=== PATIENT | female | born 1990 | race Caucasian/White ===

== ENCOUNTER 2017-02-22 20:46 | Emergency (ER) | payer OTHER ==
[2017-02-22 20:57] VITALS: TEMP 98.6; BMI 25.7
[2017-02-22 21:44] LABS: BASOPHIL 0.2 % (0-2.0); EOSINOPHIL 0.3 % (0-4.5); MCH 30.9 pg (25.7-33.7); MCHC 34.4 g/dl (32.0-36.0); MEAN CELL VOLUME 89.9 fl (80-96); MEAN PLT VOLUME 8.3 fl (7.5-11.1); NEUTROPHILS 71.7 % (42.8-82.8); PLATELET COUNT 285 K/MM3 (134-434); RDW 13.7 % (11.6-15.6); URINE APPEARANCE SLCLOUDY; URINE BILIRUBIN NEGATIVE (NEGATIVE); URINE BLOOD NEGATIVE (NEGATIVE); URINE COLOR DKYELLOW; URINE GLUCOSE (UA) NEGATIVE (NEGATIVE); URINE KETONE TRACE (NEGATIVE); URINE LEUK ESTERASE NEGATIVE (NEGATIVE); URINE NITRITE NEGATIVE (NEGATIVE); URINE PROTEIN NEGATIVE (NEGATIVE); URINE UROBILINOGEN NEGATIVE mg/dL (0.2-1.0)
[2017-02-22 22:17] LABS: ALBUMIN 3.6 g/dl (3.4-5.0); ANION GAP 9 (8-16); BILIRUBIN,TOTAL 0.2 mg/dL (0.2-1.0); CALCIUM 8.7 mg/dL (8.5-10.1); CO2 26 mmol/L (21-32); CREATININE 0.6 mg/dL (0.55-1.02); SGOT/AST 14 U/L (15-37); SGPT/ALT 22 U/L (12-78); TOT PROT 6.9 g/dl (6.4-8.2)
[2017-02-22 22:18] LABS: ALK PHOS 68 U/L (45-117)
[2017-02-22 22:24] LABS: GLUCOSE,RANDOM 48 mg/dL (74-106)
--- NOTE | 2017-02-22 22:36 | PDOC ---
History of Present Illness - General History Source: Patient Exam Limitations: No Limitations - History of Present Illness Initial Comments: 02/22/17 22:40 The patient is a 27-year-old female who is 10 weeks , , with no significant past medical history, who presents to the ED with vaginal spotting that began yesterday. The patient states that the blood appeared to be red/ brown in color. She also reports experiencing abdominal cramping. She has no history of ectopic pregnancies or miscarriages. Pt had a confirmed IUP on first visit. The patient denies any fever, chills, nausea, vomiting, or diarrhea. She denies any urinary symptoms. PCP: Dr. Brooke Costa Surgical Hx: Gastric Bypass Surgery, . <Farideh Carroll - Last Filed: 02/22/17 22:40> - General History Source: Patient Exam Limitations: No Limitations <Maryuri Olsen - Last Filed: 02/22/17 23:54> - General Chief Complaint: Vaginal Bleeding Stated Complaint: VAGINAL BLEEDING/10 WKS Time Seen by Provider: 02/22/17 21:14 Past History <Farideh Carroll - Last Filed: 02/22/17 22:40> - Reproductive History Is Patient Now?: Yes Therapeutic (s) & number: No - Psycho/Social/Smoking Cessation Hx Anxiety: No Suicidal Ideation: No Smoking History: Never smoked Have you smoked in the past 12 months: No Information on smoking cessation initiated: No Hx Alcohol Use: No Drug/Substance Use Hx: No Substance Use Type: None <Maryuri Olsen - Last Filed: 02/22/17 23:54> - Past Medical History Allergies/Adverse Reactions: Allergies Allergy/AdvReac Type Severity Reaction Status Date / Time No Known Allergies Allergy Verified 02/22/17 20:57 Home Medications: Ambulatory Orders NK [No Known Home Medication] 02/22/17 Review of Systems - Review of Systems Able to Perform ROS?: Yes Comments:: 02/22/17 22:41 GENERAL/CONSTITUTIONAL: No fever or chills. No weakness. HEAD, EYES, EARS, NOSE AND THROAT: No change in vision. No ear pain or discharge. No sore throat. CARDIOVASCULAR: No chest pain or shortness of breath. RESPIRATORY: No cough, wheezing, or hemoptysis. GASTROINTESTINAL: (+)Abdominal cramping. No nausea, vomiting, diarrhea or constipation. GENITOURINARY: (+)vaginal spotting. No dysuria, frequency, or change in urination. MUSCULOSKELETAL: No joint swelling or pain. No neck or back pain. SKIN: No rash NEUROLOGIC: No headache, vertigo, loss of consciousness, or change in strength/ sensation. ENDOCRINE: No increased thirst. No abnormal weight change. HEMATOLOGIC/LYMPHATIC: No anemia, easy bleeding, or history of blood clots. ALLERGIC/IMMUNOLOGIC: No hives or skin allergy. <Farideh Carroll - Last Filed: 02/22/17 22:40> *Physical Exam - Vital Signs Last Vital Signs Temp Pulse Resp BP Pulse Ox 98.6 F 102 H 18 119/68 99 02/22/17 20:54 02/22/17 20:54 02/22/17 20:54 02/22/17 20:54 02/22/17 20:54 - Physical Exam Comments: 02/22/17 22:42 GENERAL: Awake, alert, and fully oriented, in no acute distress HEAD: No signs of trauma EYES: PERRLA, EOMI, sclera anicteric, conjunctiva clear ENT: Auricles normal inspection, hearing grossly normal, nares patent, oropharynx clear without exudates. Moist mucosa NECK: Normal ROM, supple, no lymphadenopathy, JVD, or masses LUNGS: Breath sounds equal, clear to auscultation bilaterally. No wheezes, and no crackles HEART: Regular rate and rhythm, normal S1 and S2, no murmurs, rubs or gallops ABDOMEN: Soft, nontender, normoactive bowel sounds. No guarding, no rebound. No masses EXTREMITIES: Normal range of motion, no edema. No clubbing or cyanosis. No cords, erythema, or tenderness NEUROLOGICAL: Cranial nerves II through XII intact. SKIN: Warm, Dry, normal turgor, no rashes or lesions noted <Farideh Carroll - Last Filed: 02/22/17 22:40> - Vital Signs Last Vital Signs Temp Pulse Resp BP Pulse Ox 98.6 F 102 H 18 119/68 99 02/22/17 20:54 02/22/17 20:54 02/22/17 20:54 02/22/17 20:54 02/22/17 20:54 <Maryuri Olsen - Last Filed: 02/22/17 23:54> Procedures - Bedside Ultrasound Bedside Ultrasound: telegrapher agent Other: see [facility] for report <RaúlMaryuri - Last Filed: 02/22/17 23:54> ED Treatment Course - LABORATORY CBC & Chemistry Diagram: 02/22/17 21:30 02/22/17 21:30 - ADDITIONAL ORDERS Additional order review: Laboratory Results 02/22/17 02/22/17 02/22/17 21:30 21:30 21:30 Sodium 141 Potassium 4.3 Chloride 106 Carbon Dioxide 26 Anion Gap 9 BUN 6 L Creatinine 0.6 Creat Clearance w eGFR > 60 Random Glucose 48 L* Calcium 8.7 Total Bilirubin 0.2 AST 14 L ALT 22 Alkaline Phosphatase 68 Total Protein 6.9 Albumin 3.6 Urine Color Dkyellow Urine Appearance Slcloudy Urine pH 5.0 Urine Protein Negative Urine Glucose (UA) Negative Urine Ketones Trace H Urine Blood Negative Urine Nitrite Negative Urine Bilirubin Negative Urine Urobilinogen Negative Ur Leukocyte Esterase Negative Blood Type B POSITIVE Antibody Screen Negative 02/22/17 21:30 RBC 4.13 MCV 89.9 MCHC 34.4 RDW 13.7 MPV 8.3 Neutrophils % 71.7 Lymphocytes % 21.8 Monocytes % 6.0 Eosinophils % 0.3 Basophils % 0.2 <Farideh Carroll - Last Filed: 02/22/17 22:40> - LABORATORY CBC & Chemistry Diagram: 02/22/17 21:30 02/22/17 21:30 - ADDITIONAL ORDERS Additional order review: Laboratory Results 02/22/17 02/22/17 21:30 21:30 Sodium 141 Potassium 4.3 Chloride 106 Carbon Dioxide 26 Anion Gap 9 BUN 6 L Creatinine 0.6 Creat Clearance w eGFR > 60 Random Glucose 48 L* Calcium 8.7 Total Bilirubin 0.2 AST 14 L ALT 22 Alkaline Phosphatase 68 Total Protein 6.9 Albumin 3.6 Urine Color Dkyellow Urine Appearance Slcloudy Urine pH 5.0 Urine Protein Negative Urine Glucose (UA) Negative Urine Ketones Trace H Urine Blood Negative Urine Nitrite Negative Urine Bilirubin Negative Urine Urobilinogen Negative Ur Leukocyte Esterase Negative 02/22/17 21:30 RBC 4.13 MCV 89.9 MCHC 34.4 RDW 13.7 MPV 8.3 Neutrophils % 71.7 Lymphocytes % 21.8 Monocytes % 6.0 Eosinophils % 0.3 Basophils % 0.2 <Maryuri Olsen - Last Filed: 02/22/17 23:54> Medical Decision Making - Medical Decision Making 02/22/17 22:34 27 yo at 10 weeks with vaginal spotting. started yesterday. describes as red with brown. mild abd cramping. no h/o ectopic or miscarriage. had confirmed IUP on her first visit. no other complaints. no urinary sxs. PE awake alert lungs clear heart rrr no mrg. abd soft nt nd. ext wwp no edema. plan: differential threatened vs. missed or incomlete ab. plan labs bedside us, reassess. 02/22/17 22:36 focused ED ultrasound transabdominal OB, indication bleeding evaluate well being. finding: uterus scanned in two planes. gestational sac with pole and yolk sac visualized. movement noted. crown rump length 10 wks. heart rate measured 171 bpm impression: live IUP 10 wks, 02/22/17 23:53 labs unremarkalbe. blood type Bpositive. dc home. <Maryuri Olsen - Last Filed: 02/22/17 23:54> *DC/Admit/Observation/Transfer - Attestations Scribe Attestion: 02/22/17 22:42 Documentation prepared by Farideh Carroll, acting as medical sales for Maryuri Olsen MD. <Farideh Carroll - Last Filed: 02/22/17 22:40> - Discharge Dispostion Admit: No <Maryuri Olsen - Last Filed: 02/22/17 23:54> Diagnosis at time of Disposition: Threatened - Discharge Dispostion Disposition: HOME Condition at time of disposition: Stable - Referrals Referrals: Brooke Costa MD [Primary Care Provider] - - Patient Instructions Printed Discharge Instructions: DI for Vaginal Bleeding During Additional Instructions: you should drink plenty of fluids. follow up with your mass spectroscopist next week call to schedule. nothing per vagina while bleeding. return for any concerns or problems.
--- NOTE | 2017-02-22 23:25 | PDOC ---
History of Present Illness - General Chief Complaint: Vaginal Bleeding Stated Complaint: VAGINAL BLEEDING/10 WKS Time Seen by Provider: 02/22/17 21:14 History Source: Patient Exam Limitations: No Limitations - History of Present Illness Initial Comments: 02/22/17 23:50 LMP 12/06/2016 27-year-old female with no past medical history presents to the emergency department complaining of scant vaginal "blood" discharge without nausea/ vomiting, fever/chills, chest pain, shortness of breath, abdominal pains, flank pains, urinary symptoms: Frequency/urgency/hesitancy, hematuria. Patient denies any pain is discomfort. Past History - Past Medical History Allergies/Adverse Reactions: Allergies Allergy/AdvReac Type Severity Reaction Status Date / Time No Known Allergies Allergy Verified 02/22/17 20:57 Home Medications: Ambulatory Orders NK [No Known Home Medication] 02/22/17 - Reproductive History Is Patient Now?: Yes Therapeutic (s) & number: No - Psycho/Social/Smoking Cessation Hx Anxiety: No Suicidal Ideation: No Smoking History: Never smoked Have you smoked in the past 12 months: No Information on smoking cessation initiated: No Hx Alcohol Use: No Drug/Substance Use Hx: No Substance Use Type: None Review of Systems - Review of Systems Able to Perform ROS?: Yes Comments:: 02/22/17 23:51 CONSTITUTIONAL: Absent: fever, chills, diaphoresis, generalized weakness, malaise, loss of appetite HEENT: Absent: rhinorrhea, nasal congestion, throat pain, throat swelling, difficulty swallowing, mouth swelling, ear pain, eye pain, visual Changes CARDIOVASCULAR: Absent: chest pain, loss of consciousness, palpitations, irregular heart rate, peripheral edema RESPIRATORY: Absent: cough, shortness of breath, dyspnea with exertion, orthopnea, wheezing, stridor, hemoptysis GASTROINTESTINAL: Absent: abdominal pain, abdominal distension, nausea, vomiting, diarrhea, constipation, melena, hematochezia GENITOURINARY: Absent: dysuria, frequency, urgency, hesitancy, hematuria, flank pain, genital pain MUSCULOSKELETAL: Absent: myalgia, arthralgia, joint swelling SKIN: Absent: rash, itching, pallor Is the patient limited Citizen [place] proficient: No *Physical Exam - Vital Signs Last Vital Signs Temp Pulse Resp BP Pulse Ox 98.6 F 102 H 18 119/68 99 02/22/17 20:54 02/22/17 20:54 02/22/17 20:54 02/22/17 20:54 02/22/17 20:54 - Physical Exam Comments: 02/22/17 23:51 GENERAL: Well developed, well nourished. Awake and alert. No acute distress. HEENT: Normocephalic, atraumatic. PERRLA, EOMI. No conjunctival pallor. Sclera are non- icteric. Moist mucous membranes. Oropharynx is clear. NECK: Supple. Full ROM. No JVD. Carotid pulses 2+ and symmetric, without bruits. No thyromegaly. No lymphadenopathy. CARDIOVASCULAR: Regular rate and rhythm. No murmurs, rubs, or gallops. Distal pulses are 2+ and symmetric. PULMONARY: No evidence of respiratory distress. Lungs clear to auscultation bilaterally. No wheezing, rales or rhonchi. ABDOMINAL: Soft. Non-tender. Non-distended. No rebound or guarding. No organomegaly. Normoactive bowel sounds. SKIN: Warm and dry. Normal capillary refill. No rashes. No jaundice. Pelvic: External genitalia normal without lesions. Vaginal vault is clear without blood or discharge. Cervix is long and closed. ED Treatment Course - LABORATORY CBC & Chemistry Diagram: 02/22/17 21:30 02/22/17 21:30 - ADDITIONAL ORDERS Additional order review: Laboratory Results 02/22/17 02/22/17 02/22/17 21:30 21:30 21:30 Sodium 141 Potassium 4.3 Chloride 106 Carbon Dioxide 26 Anion Gap 9 BUN 6 L Creatinine 0.6 Creat Clearance w eGFR > 60 Random Glucose 48 L* Calcium 8.7 Total Bilirubin 0.2 AST 14 L ALT 22 Alkaline Phosphatase 68 Total Protein 6.9 Albumin 3.6 Urine Color Dkyellow Urine Appearance Slcloudy Urine pH 5.0 Ur Specific Raymond >= 1.030 H Urine Protein Negative Urine Glucose (UA) Negative Urine Ketones Trace H Urine Blood Negative Urine Nitrite Negative Urine Bilirubin Negative Urine Urobilinogen Negative Ur Leukocyte Esterase Negative Blood Type B POSITIVE Antibody Screen Negative 02/22/17 21:30 RBC 4.13 MCV 89.9 MCHC 34.4 RDW 13.7 MPV 8.3 Neutrophils % 71.7 Lymphocytes % 21.8 Monocytes % 6.0 Eosinophils % 0.3 Basophils % 0.2 *DC/Admit/Observation/Transfer Diagnosis at time of Disposition: Threatened - Discharge Dispostion Disposition: HOME Condition at time of disposition: Stable - Referrals Referrals: Brooke Costa MD [Primary Care Provider] - - Patient Instructions Printed Discharge Instructions: DI for Vaginal Bleeding During Additional Instructions: you should drink plenty of fluids. follow up with your nursing consultant next week call to schedule. nothing per vagina while bleeding. return for any concerns or problems. - Post Discharge Activity
[2017-02-23 00:07] VITALS: BP 122/64; PULSE 89
== END 2017-02-23 00:06 | disposition home or self-care (01) ==
LOC: SUPCPDRO 20:46 → JER 20:46
DX: Z3A.10 10 weeks gestation of pregnancy (principal)
CPT/HCPCS: 36415; 80053; 81003; 84702; 85025; 86850; 86900; 86901; 99283-25

== ENCOUNTER 2017-09-13 07:30 | Inpatient (IN) | payer OTHER ==
[2017-09-13 13:33] VITALS: BMI 31.3
[2017-09-13] MEDS ORDERED: morphine SULFATE/Preservative Free 0.5 MG/ML (1cc Syringe) EP ONE (14:11)
[2017-09-13] MEDS ORDERED: ONDANSETRON 4 MG/2 ML VIAL IVPUSH PRN (14:11)
[2017-09-13] MEDS ORDERED: IBUPROFEN 800 MG/8 ML IJ IVPB PRN (14:13)
[2017-09-13] MEDS ORDERED: BUPIVACAINE 0.75% IN DEXTROSE/PF 2ML AMPULE NR ONE (14:23)
[2017-09-13] MEDS ORDERED: CITRIC ACID/SODIUM CITRATE 30 ML UNIT-DOSE CUP PO ONE (14:31)
--- NOTE | 2017-09-13 14:31 | HP ---
Past Medical History - Primary Care Physician PCP:: Narciso Murrieta - Admission Chief Complaint: 39 weeks, previous c/s , request of repeat c/s History of Present Illness: 27 yo f 39 weeks with previous c/s , request of repeat c/s, risks discussed , discussed , declined , cx clp. vx -3 mi, fhr cat 1, no contraction History Source: Patient Limitations to Obtaining History: No Limitations - Past Medical History ...: 2 ...Para: 1 ...Term: 1 ...LMP: 12/06/16 ... Weeks Gestation by Dates: 40.1 ...EDC by Dates: 09/12/17 ...EDC by Sono: 09/20/17 - Past Surgical History Past Surgical History: Yes: Hx Myomectomy: No Hx Transabdominal Cerclage: No - Smoking History Smoking history: Never smoked Have you smoked in the past 12 months: No - Alcohol/Substance Use Hx Alcohol Use: No History of Substance Use: reports: None Home Medications - Allergies Allergies/Adverse Reactions: Allergies Allergy/AdvReac Type Severity Reaction Status Date / Time No Known Allergies Allergy Verified 02/22/17 20:57 - Home Medications Home Medications: Ambulatory Orders NK [No Known Home Medication] 02/22/17 Review of Systems - Review of Systems Constitutional: reports: No Symptoms Eyes: reports: No Symptoms HENT: reports: No Symptoms Neck: reports: No Symptoms Cardiovascular: reports: No Symptoms Respiratory: reports: No Symptoms Gastrointestinal: reports: No Symptoms Genitourinary: reports: No Symptoms Breasts: reports: No Symptoms Reported Musculoskeletal: reports: No Symptoms Integumentary: reports: No Symptoms Neurological: reports: No Symptoms Endocrine: reports: No Symptoms Hematology/Lymphatic: reports: No Symptoms Psychiatric: reports: No Symptoms Physical Exam - Maternity Vital Signs: Vital Signs Temperature 97.8 F 09/13/17 12:00 Pulse Rate 79 09/13/17 12:00 Respiratory Rate 20 09/13/17 12:00 Blood Pressure 116/65 09/13/17 12:00 O2 Sat by Pulse Oximetry (%) Constitutional: Yes: Well Nourished, No Distress, Calm Eyes: Yes: WNL, Conjunctiva Clear, EOM Intact HENT: Yes: WNL, Atraumatic, Normocephalic Neck: Yes: WNL, Supple, Trachea Midline Cardiovascular: Yes: WNL, Regular Rate and Rhythm Breast(s): Yes: WNL - Abdominal Exam/OB Fundal Height: 38 Number of Fetuses: Single Presentation: Vertex Contractions: No Intensity: Unaware Monitor Mode: External Heart Rate Location: [facility] Category: I Accelerations: Uniform Decelerations: None - Vaginal Exam/OB Vaginal Bleediing: No Speculum Exam: No Dilatation (cm): 0 Effacement (%): 0 Amniotic Membrane Status: Intact Presentation: Vertex/Position Station: -3 - Physical Exam Edema: Yes Edema: LLE: Trace, RLE: Trace Deep Tendon Reflex Grade: Normal +2 Hemorrhage Risk Assessment - Risk Factors Medium Risk Factors: Yes: Prior , uterine surgery,or multiple laparotomies Risk Score: 1 Risk Level: Medium Risk Problem List - Problems (1) with 39 completed weeks gestation Code(s): Z3A.39 - 39 WEEKS GESTATION OF (2) Previous section complicating Code(s): O34.219 - MATERNAL CARE FOR UNSP TYPE SCAR FROM PREVIOUS DEL Assessment/Plan repeat c/s, rba discussed
[2017-09-13] MEDS ORDERED: ceFAZolin SODIUM 1 GM VIAL ONE (14:32)
[2017-09-13] MEDS ORDERED: ePHEDrine SULFATE 50 MG/1 ML AMPULE ONE (14:34)
[2017-09-13] MEDS ORDERED: ELECTROLYTE-148 SOLN 1,000 ML IV SCH (14:45)
[2017-09-13] MEDS ORDERED: OXYTOCIN 20 UNITS in 0.9% NS 20 UNIT/1,000 ML INFUS.BAG IV ONE ×2 (14:47→16:33)
[2017-09-13] MEDS ORDERED: MIDAZOLAM HCL 2 MG/2 ML SINGLE DOSE VIAL ONE (14:47)
[2017-09-13] MEDS ORDERED: METHYLERGONOVINE MALEATE 0.2 MG/1 ML AMP IM PRN (15:22)
[2017-09-13] MEDS ORDERED: BENZOCAINE 20% 57 GM BOTTLE TP PRN (15:22)
[2017-09-13] MEDS ORDERED: WITCH HAZEL 50% (TUCKS) 40 PAD/JAR PAD TP PRN (15:22)
[2017-09-13] MEDS ORDERED: BENZOCAINE 28 GM HEMORRHOIDAL OINTMENT PR PRN (15:22)
[2017-09-13] MEDS ORDERED: DEXTROSE 5%-LACTATED RINGERS 1,000 ML IV SCH (15:30)
[2017-09-13] MEDS ORDERED: OXYTOCIN 20 UNITS in 0.9% NS 20 UNIT/1,000 ML INFUS.BAG IV SCH (15:30)
[2017-09-13] MEDS: IBUPROFEN 800 MG/8 ML IJ IVPB PRN ×2 (17:40→23:58)
[2017-09-13] MEDS: CEFAZOLIN 1 GM/D5W 1 GM/50 ML BAG IVPB SCH (22:33)
[2017-09-14] MEDS: CEFAZOLIN 1 GM/D5W 1 GM/50 ML BAG IVPB SCH (05:40)
[2017-09-14] MEDS: diphenhydrAMINE HCL 25 MG CAPSULE (FP) PO PRN ×2 (05:55→15:47)
--- NOTE | 2017-09-14 06:56 | PN ---
Post Progress Note - Subjective Subjective: 27 yo Para 2 status post repeat , seen and evaluated. She c/o incision pain. Post Day: 1 Type of Delivery: Repeat C/S Vital Signs: Vital Signs Temperature 98.6 F 09/14/17 06:00 Pulse Rate 70 09/14/17 06:00 Respiratory Rate 20 09/14/17 06:00 Blood Pressure 106/56 09/14/17 06:00 O2 Sat by Pulse Oximetry (%) 100 09/13/17 16:20 Breast Exam: Yes: Soft Uterus: Yes: Fundus Firm Incision: Yes: Dressing dry and intact Abdomen/GI: Yes: Abdomen soft, Tolerating PO Lochia: Yes: Rubra Lochia, amount: Small Extremities: Yes: Calves non-tender Perineum: Yes: Intact Activity: Ambulating Problem List - Problems (1) Status post repeat low transverse section Code(s): Z98.891 - HISTORY OF UTERINE SCAR FROM PREVIOUS SURGERY Assessment/Plan Status post repeat Ambulation Analgesia as needed Continue post op care
[2017-09-14 07:45] LABS: BASO % 0.2 % (0-2.0); EOS % 0.2 % (0-4.5); HEMATOCRIT 30.7 % (32.4-45.2); HEMOGLOBIN 10.3 GM/dL (10.7-15.3); LYMPH % 13.5 % (8-40); MCH 30.3 pg (25.7-33.7); MCHC 33.5 g/dl (32.0-36.0); MEAN CELL VOLUME 90.5 fl (80-96); MEAN PLT VOLUME 8.7 fl (7.5-11.1); MONO % 8.3 % (3.8-10.2); NEUT % 77.8 % (42.8-82.8); PLATELET COUNT 245 K/MM3 (134-434); RBC 3.39 M/mm3 (3.60-5.2); WHITE BLOOD COUNT 11.2 K/mm3 (4.0-10.0)
[2017-09-14] MEDS: oxyCODONE HCL 5 MG TABLET PO PRN ×3 (08:43→21:37)
[2017-09-14] MEDS: IBUPROFEN 600 MG TABLET (FP) PO PRN ×3 (08:43→21:36)
[2017-09-14] MEDS: SIMETHICONE 80 MG TAB.CHEW (FP) PO PRN ×3 (08:44→21:36)
--- NOTE | 2017-09-14 08:46 | PN ---
Progress Note (short form) - Note Progress Note: Post op day#1.S/p C Section under spinal anesthesia with duramorph uneventful.Patient stable and has some pain for which she is on medication.No any anesthesia related problem.Patient DC from the anesthesia care.
[2017-09-14] MEDS: FERROUS SO4 325 MG TABLET (FP) PO SCH (10:19)
[2017-09-14] MEDS: ASCORBIC ACID 250 MG TABLET (FP) PO SCH (10:19)
[2017-09-14] MEDS: CALCIUM 500MG/VIT-D 200 UNITS COMBO TABLET (FP) PO SCH (10:19)
[2017-09-14] MEDS: CYANOCOBALAMIN 1,000 MCG TABLET (FP) PO SCH (10:19)
[2017-09-14] MEDS: ENOXAPARIN NA (PORCINE) 40 MG/0.4 ML DISP.SYRIN SQ SCH (10:19)
[2017-09-14] MEDS: PRENATAL VITAMINS W/ FOLIC ACID TABLET (FP) PO SCH (10:19)
[2017-09-14] MEDS ORDERED: BISACODYL 10 MG SUPP.RECT PR PRN (15:23)
[2017-09-14] MEDS ORDERED: METHYL SALICYLATE/MENTHOL OINT 30 GM TUBE TP PRN (18:32)
[2017-09-14] MEDS ORDERED: ACETAMINOPHEN 325 MG TABLET (FP) PO PRN (18:39)
[2017-09-14] MEDS: ACETAMINOPHEN 325 MG TABLET (FP) PO PRN (19:52)
[2017-09-15] MEDS: oxyCODONE HCL 5 MG TABLET PO PRN ×5 (01:34→21:27)
[2017-09-15] MEDS: IBUPROFEN 600 MG TABLET (FP) PO PRN ×5 (01:35→21:28)
[2017-09-15] MEDS: SIMETHICONE 80 MG TAB.CHEW (FP) PO PRN ×4 (01:35→17:28)
[2017-09-15] MEDS: PRENATAL VITAMINS W/ FOLIC ACID TABLET (FP) PO SCH (10:00)
[2017-09-15] MEDS: ENOXAPARIN NA (PORCINE) 40 MG/0.4 ML DISP.SYRIN SQ SCH (10:01)
[2017-09-15] MEDS: FERROUS SO4 325 MG TABLET (FP) PO SCH (10:01)
[2017-09-15] MEDS: CYANOCOBALAMIN 1,000 MCG TABLET (FP) PO SCH (10:01)
[2017-09-15] MEDS: CALCIUM 500MG/VIT-D 200 UNITS COMBO TABLET (FP) PO SCH (10:01)
[2017-09-15] MEDS: ASCORBIC ACID 250 MG TABLET (FP) PO SCH (10:01)
--- NOTE | 2017-09-15 10:06 | PN ---
Post Progress Note - Subjective Subjective: 27 yo Para 2 status post seen and evaluated. Doing well. Post Day: 2 Type of Delivery: Repeat C/S Vital Signs: Vital Signs Temperature 98.2 F 09/14/17 20:37 Pulse Rate 73 09/14/17 20:37 Respiratory Rate 18 09/14/17 20:37 Blood Pressure 95/50 09/14/17 20:37 O2 Sat by Pulse Oximetry (%) 100 09/13/17 16:20 Breast Exam: Yes: Soft Uterus: Yes: Fundus Firm Incision: Yes: Dressing dry and intact Abdomen/GI: Yes: Abdomen soft, Tolerating PO Lochia: Yes: Rubra Lochia, amount: Small Extremities: Yes: Calves non-tender Perineum: Yes: Intact Activity: Ambulating - Labs Labs: CBC WBC 11.2 K/mm3 (4.0-10.0) H 09/14/17 07:20 RBC 3.39 M/mm3 (3.60-5.2) L 09/14/17 07:20 Hgb 10.3 GM/dL (10.7-15.3) L D 09/14/17 07:20 Hct 30.7 % (32.4-45.2) L 09/14/17 07:20 MCV 90.5 fl (80-96) 09/14/17 07:20 MCH 30.3 pg (25.7-33.7) 09/14/17 07:20 MCHC 33.5 g/dl (32.0-36.0) 09/14/17 07:20 RDW 14.0 % (11.6-15.6) 09/14/17 07:20 Plt Count 245 K/MM3 (134-434) 09/14/17 07:20 MPV 8.7 fl (7.5-11.1) 09/14/17 07:20 Neutrophils % 77.8 % (42.8-82.8) 09/14/17 07:20 Lymphocytes % 13.5 % (8-40) D 09/14/17 07:20 Monocytes % 8.3 % (3.8-10.2) 09/14/17 07:20 Eosinophils % 0.2 % (0-4.5) 09/14/17 07:20 Basophils % 0.2 % (0-2.0) 09/14/17 07:20 Problem List - Problems (1) Status post repeat low transverse section Code(s): Z98.891 - HISTORY OF UTERINE SCAR FROM PREVIOUS SURGERY Assessment/Plan Status post repeat Ambulation Analgesia as needed Continue post op care
[2017-09-15] MEDS ORDERED: SENNOSIDES/DOCUSATE COMBO (SENNA PLUS) TABLET (UD) PO PRN (22:00)
[2017-09-16] MEDS: IBUPROFEN 600 MG TABLET (FP) PO PRN ×3 (04:21→15:47)
[2017-09-16] MEDS: ACETAMINOPHEN 325 MG TABLET (FP) PO PRN ×2 (04:21→15:48)
[2017-09-16 08:10] LABS: BASO % 0.3 % (0-2.0); EOS % 1.1 % (0-4.5); HEMATOCRIT 27.1 % (32.4-45.2); HEMOGLOBIN 9.3 GM/dL (10.7-15.3); MCHC 34.4 g/dl (32.0-36.0); MEAN CELL VOLUME 90.1 fl (80-96); MEAN PLT VOLUME 8.8 fl (7.5-11.1); MONO % 8.2 % (3.8-10.2); NEUT % 66.4 % (42.8-82.8); PLATELET COUNT 239 K/MM3 (134-434); RBC 3.01 M/mm3 (3.60-5.2); WHITE BLOOD COUNT 7.1 K/mm3 (4.0-10.0)
--- NOTE | 2017-09-16 08:52 | DS ---
Physical Exam-OCULAR CARE TECHNICIAN Vital Signs: Vital Signs Temperature 98.6 F 09/15/17 22:00 Pulse Rate 65 09/15/17 22:00 Respiratory Rate 20 09/15/17 22:00 Blood Pressure 108/54 09/15/17 22:00 O2 Sat by Pulse Oximetry (%) 100 09/15/17 21:00 Constitutional: Yes: Well Nourished Eyes: Yes: Conjunctiva Clear HENT: Yes: Atraumatic Neck: Yes: Supple Cardiovascular: Yes: Regular Rate and Rhythm Respiratory: Yes: Regular Gastrointestinal: Yes: Normal Bowel Sounds External Genitalia: Yes: Normal Vaginal Exam: Yes: Normal Cervix: Yes: Normal Uterus: Yes: Firm Breast(s): Yes: WNL Musculoskeletal: Yes: WNL Extremities: Yes: WNL Wound/Incision: Yes: Well Approximated, [place] Intact Neurological: Yes: Alert, Oriented ...Motor Strength: WNL Psychiatric: Yes: Alert, Oriented Labs: CBC, BMP 09/16/17 07:30 Delivery - Delivery Type of Anesthesia: Spinal Episiotomy/Laceration: None EBL (cc): 500 Delivery, Single - Stages of Labor Date of Delivery: 09/13/17 Time of Delivery: 14:46 Time Placenta Delivered: 14:47 - Condition of Accounting Coordinator/Shell [employer]onder Present: Yes Name: Victor Manuel Fox Gender: Male Weight: 7 lb 7.4 oz Position: Right, OT Total Hours ROM (Hrs/Mins): 0hrs/2mins - 1 Minute Total Score: 8 5 Minutes Total Score: 9 - [place] Feeding Plan Initial Plan: Exclusive throughout hospitalization Discharge Summary Reason For Visit: C SECTION Current Active Problems with 39 completed weeks gestation (Acute) Previous section complicating (Acute) Status post repeat low transverse section (Acute) Procedures: Principal: Repeat Low Transverse Hospital Course: Routine Post op care. No blood transfusion nor additional dosage of antibiotic required. Condition: Good - Instructions Diet, Activity, Other Instructions: Regular diet No driving, no lifting x 4 wees. F/U in clinic in 1 week Disposition: HOME - Home Medications Comprehensive Discharge Medication List: Ambulatory Orders NK [No Known Home Medication] 02/22/17
[2017-09-16] MEDS: oxyCODONE HCL 5 MG TABLET PO PRN (08:55)
[2017-09-16] MEDS: SIMETHICONE 80 MG TAB.CHEW (FP) PO PRN ×2 (08:55→15:48)
[2017-09-16] MEDS: ENOXAPARIN NA (PORCINE) 40 MG/0.4 ML DISP.SYRIN SQ SCH (09:42)
[2017-09-16] MEDS: PRENATAL VITAMINS W/ FOLIC ACID TABLET (FP) PO SCH (09:42)
[2017-09-16] MEDS: FERROUS SO4 325 MG TABLET (FP) PO SCH (09:42)
[2017-09-16] MEDS: CALCIUM 500MG/VIT-D 200 UNITS COMBO TABLET (FP) PO SCH (09:43)
[2017-09-16] MEDS: CYANOCOBALAMIN 1,000 MCG TABLET (FP) PO SCH (09:43)
[2017-09-16] MEDS: ASCORBIC ACID 250 MG TABLET (FP) PO SCH (09:43)
[2017-09-16 11:33] VITALS: BP 117/69; PULSE 71; TEMP 98.5
--- NOTE | 2017-09-17 11:24 | OP ---
DATE OF OPERATION: 09/13/2017 PREOPERATIVE DIAGNOSIS: 39 weeks, previous section, request of repeat section. POSTOPERATIVE DIAGNOSIS: 39 weeks, previous section, request of repeat section. PROCEDURE: Repeat low segment transverse section. SURGEON: Crystal Murrieta MD VIDEO PLAYER MECHANIC: SEUN Mendoza ANESTHESIA: Spinal. ESTIMATED BLOOD LOSS: 700 mL. DESCRIPTION OF PROCEDURE: The patient was taken to the operating room under adequate spinal anesthesia. Abdomen and perineum were prepped and draped. Pfannenstiel abdominal skin incision was made over the previous incision. Abdominal wall was cut layer by layer until the peritoneum was exposed and incised. Upon entering the abdominal cavity, lower uterine segment was identified, and uterovesical fold of peritoneum established. Bladder was pushed down. Then with the lower blade of the [place] retractor placed, a low transverse uterine incision was made. Incision was extended laterally with bandage scissors. Amniotic sac was entered. Clear fluid. Head delivered. Nasopharynx was suctioned, and live baby delivered without any difficulty. Placenta was delivered manually. Uterine cavity was cleaned of all remaining tissue. Uterine incision was closed in 2 layers, the first layer with 0 Biosyn continuous suture, the second layer with 0 Biosyn imbricating the first layer. Bladder flap was closed with 0 Biosyn continuous suture. Both tubes and ovaries were checked and normal. No active bleeding was seen. All of the lap pad, sponge, and instrument counts were correct. Then peritoneum was closed with 0 Biosyn continuous suture. Muscles were brought together with interrupted sutures of 0 Biosyn. Fascia was closed with 0 Biosyn continuous suture. Subcutaneous fat interrupted suture of 0 Biosyn and the skin was closed with karely. The patient tolerated the procedure well and left the OR in good condition. CRYSTAL MURRIETA M.D. [id number]
--- NOTE | 2017-09-18 12:49 | PATH ---
Surgical Pathology Report Patient Name: SIRENA RICH Med. Rec. #: [id number] /Age/Gender: 1990 (Age: 27) / F Account: [id number] Location: [facility] OBS/READING INSTRUCTOR Taken: 09/13/2017 Received: 09/16/2017 Reported: 09/18/2017 Physicians: Narciso Murrieta M.D. Specimen(s) Received PLACENTA Clinical History , 2007, history of gastric bypass Silicone breast implants 09/2016, perforated ulcer 2014 Final Diagnosis PLACENTA, SECTION: 468 g THIRD TRIMESTER PLACENTA WITH TRIVASCULAR UMBILICAL CORD AND UNREMARKABLE PLACENTAL MEMBRANES. Electronically Signed Ivy Christie M.D. Gross Description The specimen is received fresh labeled placenta and is a 468 gram, 20.0 x 19.5 x 1 point cm. placenta with attached membranes and umbilical cord. The attached membranes are lee, translucent with focal opacities and insert marginally. The umbilical cord measures 45 cm. in length and averages 1 cm. in diameter. The cord inserts eccentrically, 6.5 cm. to the nearest margin. No true knots or strictures are identified. Cut surface of the umbilical cord reveals 3 vessels. The surface is mckeon-blue with minimal fibrin deposition and appropriate caliber vessels. The maternal surface is red-brown with focal defects. Sectioning reveals red-brown, spongy parenchyma. No lesions are identified. [employer] sections are submitted in three cassettes as follows: 1- membrane rolls and umbilical cord; 2-3- full thickness sections of placenta. 09/17/2017 [facility]09/17/2017
== END 2017-09-16 17:30 | disposition home or self-care (01) | DRG 540 ==
LOC: JLDR 12:00 → J3W 17:15
PROVIDERS: ADMIT Obstetrics & Gynecology; ATTEND Obstetrics & Gynecology
PROC: 10D00Z1 Extraction of Products of Conception, Low, Open Approach (ICD-10-PCS; principal; 2017-09-13)
DX: O34.211 Maternal care for low transverse scar from previous cesarean delivery (principal); Z3A.39 39 weeks gestation of pregnancy; Z37.0 Single live birth
CPT/HCPCS: 36415; 85025; 86850; 86900; 86901; 88307-TC

== ENCOUNTER 2019-01-27 07:30 | Inpatient (IN) | payer OTHER ==
[2019-01-27] MEDS ORDERED: CITRIC ACID/SODIUM CITRATE 30 ML UNIT-DOSE CUP PO ONE (07:45)
[2019-01-27] MEDS ORDERED: ELECTROLYTE-148 SOLN 1,000 ML IV SCH ×2 (08:00→09:00)
[2019-01-27 08:38] VITALS: BMI 35.1
--- NOTE | 2019-01-27 10:30 | HP ---
Past Medical History - Primary Care Physician PCP:: Narciso Murrieta - Admission Chief Complaint: 39 weeks, previous c/s , sterlization History of Present Illness: 29 yo f g 3 p2002 with 2 previous c/s , 39.1 weeks ,requesting repeat c/s, and BTL, risks of repeat c/s discussed with patient, aware BTL is permanent and not reversiable , has small failure risks and risks of ectopic, ulternatives explained History Source: Patient Limitations to Obtaining History: No Limitations - Past Medical History ...: 3 ...Para: 2 ...Term: 2 ...: 0 ...Spon : 0 ...Induced : 0 ...Multiple Gestation: 0 ...LMP: 04/28/18 ... Weeks Gestation by Dates: 39.1 ...EDC by Dates: 02/02/19 ...EDC by Sono: 02/02/19 - Past Surgical History Past Surgical History: Yes: (bilateral breast implants) Hx Myomectomy: No Hx Transabdominal Cerclage: No - Smoking History Smoking history: Never smoked Have you smoked in the past 12 months: No - Alcohol/Substance Use Hx Alcohol Use: No History of Substance Use: reports: None - Social History Usual Living Arrangement: Yes: With Spouse History of Recent Travel: No Home Medications - Allergies Allergies/Adverse Reactions: Allergies Allergy/AdvReac Type Severity Reaction Status Date / Time No Known Allergies Allergy Verified 01/27/19 08:02 - Home Medications Home Medications: Ambulatory Orders Vits96/Iron Fum/Folic [ Tablet] 1 each PO DAILY 01/27/19 Review of Systems - Review of Systems Constitutional: reports: No Symptoms Eyes: reports: No Symptoms HENT: reports: No Symptoms Neck: reports: No Symptoms Cardiovascular: reports: No Symptoms Respiratory: reports: No Symptoms Gastrointestinal: reports: No Symptoms Genitourinary: reports: Frequency Breasts: reports: No Symptoms Reported Musculoskeletal: reports: No Symptoms Integumentary: reports: No Symptoms Neurological: reports: No Symptoms Endocrine: reports: No Symptoms Hematology/Lymphatic: reports: No Symptoms Psychiatric: reports: No Symptoms Physical Exam - Maternity Vital Signs: Vital Signs Temperature 98.1 F 01/27/19 10:15 Pulse Rate 72 01/27/19 10:15 Respiratory Rate 18 01/27/19 10:15 Blood Pressure 112/59 L 01/27/19 10:15 O2 Sat by Pulse Oximetry (%) Constitutional: Yes: Well Nourished, No Distress, Calm Eyes: Yes: WNL, Conjunctiva Clear, EOM Intact HENT: Yes: WNL, Atraumatic, Normocephalic Neck: Yes: WNL, Supple, Trachea Midline Cardiovascular: Yes: WNL, Regular Rate and Rhythm Breast(s): Yes: WNL - Abdominal Exam/OB Fundal Height: 40 Number of Fetuses: Single Presentation: Vertex Intensity: Unaware Monitor Mode: External Heart Rate Location: [facility] Category: I Accelerations: Uniform Decelerations: None - Vaginal Exam/OB Vaginal Bleediing: No Speculum Exam: No Dilatation (cm): 0 Effacement (%): 0 Amniotic Membrane Status: Intact Presentation: Vertex/Position Station: -3 - Physical Exam Musculoskeletal: Yes: WNL Extremities: Yes: WNL Edema: Yes Edema: LLE: Trace, RLE: Trace Deep Tendon Reflex Grade: Normal +2 Psychiatric: Yes: WNL Hemorrhage Risk Assessment - Risk Factors Medium Risk Factors: Yes: Prior , uterine surgery,or multiple laparotomies Risk Score: 1 Risk Level: Medium Risk Problem List - Problems (1) with 39 completed weeks gestation Code(s): Z3A.39 - 39 WEEKS GESTATION OF (2) Previous section complicating Code(s): O34.219 - MATERNAL CARE FOR UNSP TYPE SCAR FROM PREVIOUS DEL (3) Admission for sterilization Code(s): Z30.2 - ENCOUNTER FOR STERILIZATION Assessment/Plan repeat c/s , BTL risks discussed
[2019-01-27] MEDS ORDERED: ONDANSETRON 4 MG/2 ML VIAL IVPUSH PRN (10:34)
[2019-01-27] MEDS ORDERED: OXYTOCIN 20 UNITS in 0.9% NS 40 UNIT/2,000 ML INFUS.BAG IV ONE (10:36)
[2019-01-27] MEDS ORDERED: morphine SULFATE/PF 0.5 MG/ML (2cc Syringe - QUVA) ONE (11:01)
[2019-01-27] MEDS ORDERED: ceFAZolin SODIUM 1 GM VIAL ONE (11:23)
[2019-01-27] MEDS ORDERED: WITCH HAZEL 50% (TUCKS) 40 PAD/JAR PAD TP PRN (12:28)
[2019-01-27] MEDS ORDERED: METHYLERGONOVINE MALEATE 0.2 MG/1 ML AMP IM PRN (12:28)
[2019-01-27] MEDS ORDERED: BENZOCAINE 20% 57 GM BOTTLE TP PRN (12:28)
[2019-01-27] MEDS ORDERED: BENZOCAINE 28 GM HEMORRHOIDAL OINTMENT PR PRN (12:28)
[2019-01-27] MEDS ORDERED: diphenhydrAMINE HCL 25 MG CAPSULE (FP) PO PRN (12:28)
[2019-01-27] MEDS ORDERED: DEXTROSE 5%-LACTATED RINGERS 1,000 ML IV SCH (12:30)
[2019-01-27] MEDS ORDERED: OXYTOCIN 20 UNITS in 0.9% NS 20 UNIT/1,000 ML INFUS.BAG IV SCH (12:30)
--- NOTE | 2019-01-27 12:36 | OP ---
Operative Note - Note: Operative Date: 01/27/19 Pre-Operative Diagnosis: 39 weeks, previous c/s, sterlization Operation: repeat LST c/s, BTL Findings: live baby boy, 03/09 Surgeon: Narciso Murrieta Configuration Manager: Espinoza Payton Anesthesia: Spinal Specimens Removed: placenta Estimated Blood Loss (mls): 500 Drains & Tubes with Location: [place] Blood Volume Replaced (mls): 0 Operative Report Dictated: Yes
--- NOTE | 2019-01-27 13:06 | PN ---
Progress Note (short form) - Note Progress Note: I assisted Dr. Murrieta with repeat section and bilateral tubal sterilization throughout the entire case.
--- NOTE | 2019-01-27 13:12 | OP ---
DATE OF OPERATION: 01/27/2019 PREOPERATIVE DIAGNOSIS: 39 weeks, 2 previous section, requests repair section, and tubal ligation. POSTOPERATIVE DIAGNOSIS: 39 weeks, 2 previous section, requests repair section, and tubal ligation. PROCEDURE: Repeat low segment transverse section and bilateral tubal ligation. SURGEON: Narciso Murrieta MD FIELD COUNSEL: Fito Doran MD ANESTHESIA: Spinal. ANESTHESIOLOGIST: Fermin Lamas MD ESTIMATED BLOOD LOSS: 500 mL. FINDINGS: A live baby boy ROT position. Clear amniotic fluid. Apgars 9/9. DESCRIPTION OF PROCEDURE: Patient was taken to the operating room under adequate spinal anesthesia. Abdomen and perineum was prepped and draped. Pfannenstiel abdominal skin incision was made. Abdominal wall was cut layer by layer until the peritoneum was exposed and incised. Upon entering the abdominal cavity, lower uterine segment was identified. Bladder flap was developed and pushed down. A small window was seen. Then incision was made in the uterus with a knife then extended laterally with bandage scissors. Amniotic sac was entered. Clear fluid. Head delivered. Nasopharynx was suctioned, and live baby was delivered without any difficulty. Placenta was delivered manually. Uterine cavity was cleaned of all remaining tissue. Uterine incision was closed in 2 layers, 1st layer with 0 Biosyn continuous suture, the 2nd layer with 0 Biosyn imbricating the 1st layer. Bladder flap was closed with 0 Biosyn continuous suture. Both tubes and ovaries were checked and were normal. No active bleeding was seen. Then the right tube was grasped with [place] clamp. Right tube was doubly tied with 2-0 plain. Portion of tube was removed, and endosalpinx was cauterized. Same procedure repeated for opposite. Both ovaries appeared to be normal. No active bleeding was seen. All of the lap pad, sponge, and instrument counts were correct. Peritoneum was closed with 0 Biosyn continuous suture. Muscles were brought together with interrupted sutures of 0 Biosyn. Fascia was closed with 0 Biosyn continuous suture. Subcutaneous fat interrupted suture of 0 Biosyn, and the skin was closed with karely. Patient tolerated the procedure well and left the OR in good condition. Marilin [id number]
[2019-01-27] MEDS ORDERED: IBUPROFEN 800 MG/8 ML IJ IVPB ONE (13:43)
[2019-01-27] MEDS: IBUPROFEN 800 MG/8 ML IJ IVPB PRN ×2 (13:45→19:46)
[2019-01-27] MEDS: CEFAZOLIN 2 GM/D5W 2 GM/50 ML ML IVPB SCH (17:08)
[2019-01-27] MEDS ORDERED: ceFAZolin 2 GRAM PREMIX BAG IVPB SCH (18:00)
[2019-01-28] MEDS: CEFAZOLIN 2 GM/D5W 2 GM/50 ML ML IVPB SCH ×2 (01:14→09:55)
[2019-01-28] MEDS: IBUPROFEN 800 MG/8 ML IJ IVPB PRN (02:14)
--- NOTE | 2019-01-28 06:26 | PN ---
Post Progress Note - Subjective Subjective: resting in bed, some pressure in abd, minmal bleeding Type of Delivery: Repeat C/S Vital Signs: Vital Signs Temperature 97.8 F 01/28/19 05:17 Pulse Rate 65 01/28/19 05:17 Respiratory Rate 20 01/28/19 06:00 Blood Pressure 115/76 01/28/19 05:17 O2 Sat by Pulse Oximetry (%) 100 01/27/19 13:35 Breast Exam: Yes: Soft Uterus: Yes: Fundus Firm Incision: Yes: Dressing dry and intact Abdomen/GI: Yes: Abdomen soft Lochia: Yes: Rubra Lochia, amount: Small Extremities: Yes: Calves non-tender Perineum: Yes: Intact Activity: Ambulating Assessment/Plan as above oob reg diet
[2019-01-28 08:28] LABS: BASO % 0.2 % (0-2.0); EOS % 0.6 % (0-4.5); HEMATOCRIT 28.2 % (32.4-45.2); HEMOGLOBIN 9.5 GM/dL (10.7-15.3); LYMPH % 13.7 % (8-40); MCH 29.3 pg (25.7-33.7); MCHC 33.7 g/dl (32.0-36.0); MEAN PLT VOLUME 8.3 fl (7.5-11.1); MONO % 8.4 % (3.8-10.2); NEUT % 77.1 % (42.8-82.8); PLATELET COUNT 247 K/MM3 (134-434); RBC 3.24 M/mm3 (3.60-5.2); RDW 13.7 % (11.6-15.6); WHITE BLOOD COUNT 10.8 K/mm3 (4.0-10.0)
[2019-01-28] MEDS: ENOXAPARIN NA (PORCINE) 40 MG/0.4 ML DISP.SYRIN SQ SCH (09:55)
[2019-01-28] MEDS: ACETAMINOPHEN 325 MG TABLET (FP) PO PRN ×3 (10:04→20:46)
[2019-01-28] MEDS: oxyCODONE HCL 5 MG TABLET PO PRN ×3 (10:05→20:46)
[2019-01-28] MEDS: SIMETHICONE 80 MG TAB.CHEW (FP) PO PRN ×3 (10:06→20:46)
[2019-01-28] MEDS ORDERED: BISACODYL 10 MG SUPP.RECT PR PRN (12:28)
--- NOTE | 2019-01-28 14:37 | PN ---
Progress Note (short form) - Note Progress Note: Pt is POD s/p c/s and BTL under spinal. She c/o right sided neck pain. Upon further questioning, she noted that the neck pain started during spinal placement, during position for the procedure; no headache, back pain, N/V. It is not a postdural puncture headache, as the pain pre-dates the spinal injection. Pt encouraged to take PO pain med should she need.
[2019-01-28] MEDS: IBUPROFEN 600 MG TABLET (FP) PO PRN (17:36)
[2019-01-29] MEDS: oxyCODONE HCL 5 MG TABLET PO PRN ×5 (00:31→20:52)
[2019-01-29] MEDS: SIMETHICONE 80 MG TAB.CHEW (FP) PO PRN ×5 (00:31→21:13)
[2019-01-29] MEDS: ACETAMINOPHEN 325 MG TABLET (FP) PO PRN ×5 (00:32→20:53)
[2019-01-29] MEDS: ENOXAPARIN NA (PORCINE) 40 MG/0.4 ML DISP.SYRIN SQ SCH (09:14)
--- NOTE | 2019-01-29 10:15 | PN ---
Post Progress Note - Subjective Subjective: c/o incisional pain scale10/10 voiding without difficulty bm done Post Day: 2 Type of Delivery: Repeat C/S Vital Signs: Vital Signs Temperature 98.2 F 01/28/19 20:41 Pulse Rate 67 01/28/19 20:41 Respiratory Rate 20 01/28/19 20:41 Blood Pressure 112/62 01/28/19 20:41 O2 Sat by Pulse Oximetry (%) 100 01/27/19 13:35 Breast Exam: Yes: Soft, Other (BF). No: Engorged Uterus: Yes: Fundus Firm, Fundus below umbilicus, Non-tender Incision: Yes: [place] intact. No: Redness, Oozing Abdomen/GI: Yes: Abdomen soft, Passing flatus, Tolerating PO (reg diet ). No: Abdominal Distention Lochia: Yes: Rubra Lochia, amount: Small Extremities: Yes: Calves non-tender Perineum: Yes: Intact Activity: Ambulating - Labs Labs: CBC WBC 10.8 K/mm3 (4.0-10.0) H 01/28/19 07:48 RBC 3.24 M/mm3 (3.60-5.2) L 01/28/19 07:48 Hgb 9.5 GM/dL (10.7-15.3) L 01/28/19 07:48 Hct 28.2 % (32.4-45.2) L 01/28/19 07:48 MCV 87.0 fl (80-96) 01/28/19 07:48 MCH 29.3 pg (25.7-33.7) 01/28/19 07:48 MCHC 33.7 g/dl (32.0-36.0) 01/28/19 07:48 RDW 13.7 % (11.6-15.6) 01/28/19 07:48 Plt Count 247 K/MM3 (134-434) D 01/28/19 07:48 MPV 8.3 fl (7.5-11.1) 01/28/19 07:48 Absolute Neuts (auto) 8.3 K/mm3 (1.5-8.0) H 01/28/19 07:48 Neutrophils % 77.1 % (42.8-82.8) 01/28/19 07:48 Lymphocytes % 13.7 % (8-40) D 01/28/19 07:48 Monocytes % 8.4 % (3.8-10.2) 01/28/19 07:48 Eosinophils % 0.6 % (0-4.5) 01/28/19 07:48 Basophils % 0.2 % (0-2.0) 01/28/19 07:48 Nucleated RBC % 0 % (0-0) 01/28/19 07:48 Problem List - Problems (1) Status post section routine follow-up Code(s): Z39.2 - ENCOUNTER FOR ROUTINE FOLLOW-UP; Z98.891 - HISTORY OF UTERINE SCAR FROM PREVIOUS SURGERY Assessment/Plan pt stable , oob ct pain management, requests for abdominal binder encourage ambulation , po fluids
[2019-01-29] MEDS: FERROUS SO4 325 MG TABLET (FP) PO SCH (21:13)
[2019-01-29] MEDS ORDERED: SENNOSIDES/DOCUSATE COMBO (SENNA PLUS) TABLET (UD) PO PRN (22:00)
[2019-01-29 22:39] VITALS: TEMP 98.4
[2019-01-29] MEDS: IBUPROFEN 600 MG TABLET (FP) PO PRN (23:28)
[2019-01-30] MEDS: oxyCODONE HCL 5 MG TABLET PO PRN ×2 (00:53→05:36)
[2019-01-30] MEDS: ACETAMINOPHEN 325 MG TABLET (FP) PO PRN ×3 (00:53→10:25)
--- NOTE | 2019-01-30 08:02 | DS ---
Physical Exam-MUSEUM ATTENDANT Vital Signs: Vital Signs Temperature 98.4 F 01/29/19 22:00 Pulse Rate 75 01/29/19 22:00 Respiratory Rate 18 01/29/19 22:00 Blood Pressure 136/72 01/29/19 22:00 O2 Sat by Pulse Oximetry (%) 100 01/27/19 13:35 Constitutional: Yes: Well Nourished, No Distress, Calm Eyes: Yes: WNL, Conjunctiva Clear, EOM Intact HENT: Yes: WNL, Atraumatic, Normocephalic Neck: Yes: WNL, Supple, Trachea Midline Cardiovascular: Yes: WNL, Regular Rate and Rhythm Respiratory: Yes: WNL, Regular, CTA Bilaterally Gastrointestinal: Yes: WNL ...Rectal Exam: Yes: WNL Renal/: Yes: WNL ....Post : Yes: Uterus firm, Uterus non-tender, Slight lochia rubra Breast(s): Yes: WNL Musculoskeletal: Yes: WNL Extremities: Yes: WNL Edema: Yes Edema: LLE: Trace, RLE: Trace Integumentary: Yes: WNL Wound/Incision: Yes: Clean/Dry, Well Approximated, [place] Intact Neurological: Yes: WNL, Alert, Oriented ...Motor Strength: WNL Psychiatric: Yes: WNL, Alert, Oriented Labs: CBC, BMP 01/28/19 07:48 Delivery - Delivery Section: Repeat, Low Flap Transverse Type of Anesthesia: Spinal Episiotomy/Laceration: None EBL (cc): 500 Delivery, Single - Stages of Labor Date of Delivery: 01/27/19 Time of Delivery: 11:39 Time Placenta Delivered: 11:40 Placenta: Yes: Expressed - Condition of Infant Cook Enchilada/Tram Driver Present: Yes Name: Victor Manuel Fox Infant Gender: Male Weight: 7 lb 7 oz Position: Right, OT Total Hours ROM (Hrs/Mins): 0/2 - 1 Minute Total Score: 8 5 Minutes Total Score: 9 - Feeding Plan Initial Plan: Elected not to breastfeed exclusively throughout hospitalization Discharge Summary Reason For Visit: REPEAT C SECTION Current Active Problems Admission for sterilization (Acute) with 39 completed weeks gestation (Acute) Previous section complicating (Acute) Status post section routine follow-up (Acute) Procedures: Principal: repeat LST c/s Other Procedures: tubal ligation Condition: Good - Instructions Diet, Activity, Other Instructions: regu;lar diet, follow up [facility] care 1 week , if fever , heavy vaginal bleeding , pain call md Referrals: Narciso Murrieta MD [Staff Physician] - Disposition: HOME - Home Medications Comprehensive Discharge Medication List: Ambulatory Orders Vits96/Iron Fum/Folic [ Tablet] 1 each PO DAILY 01/27/19 Ibuprofen [Motrin -] 600 mg PO QID #28 tablet 01/29/19 Oxycodone HCl/Acetaminophen [Percocet 5-325 mg Tablet] 1 tab PO Q6H PRN #20 tablet MDD 4 01/29/19
[2019-01-30 08:53] LABS: BASO % 0.2 % (0-2.0); EOS % 1.6 % (0-4.5); HEMATOCRIT 27.5 % (32.4-45.2); HEMOGLOBIN 9.3 GM/dL (10.7-15.3); LYMPH % 26.1 % (8-40); MCH 29.1 pg (25.7-33.7); MCHC 33.7 g/dl (32.0-36.0); MEAN CELL VOLUME 86.2 fl (80-96); MEAN PLT VOLUME 8.3 fl (7.5-11.1); MONO % 7.7 % (3.8-10.2); NEUT % 64.4 % (42.8-82.8); PLATELET COUNT 271 K/MM3 (134-434); RBC 3.18 M/mm3 (3.60-5.2); RDW 13.6 % (11.6-15.6)
[2019-01-30] MEDS ORDERED: PRENATAL VITAMINS W/ FOLIC ACID TABLET (FP) PO SCH (10:00)
[2019-01-30] MEDS: ENOXAPARIN NA (PORCINE) 40 MG/0.4 ML DISP.SYRIN SQ SCH (10:22)
[2019-01-30] MEDS: FERROUS SO4 325 MG TABLET (FP) PO SCH (10:23)
[2019-01-30] MEDS: IBUPROFEN 600 MG TABLET (FP) PO PRN (10:24)
[2019-01-30 12:17] VITALS: BP 142/76; PULSE 60
--- NOTE | 2019-02-05 18:03 | PATH ---
Surgical Pathology Report Patient Name: SIRENA RICH [facility]. Rec. #: [id number] /Age/Gender: 1990 (Age: 29) / F Account: [id number] Location: [facility] OBS/DIRECTOR TITLE Taken: 01/27/2019 Received: 01/28/2019 Reported: 02/05/2019 Physicians: Narciso Murrieta M.D. Specimen(s) Received A: PLACENTA B: LEFT FALLOPIAN TUBE C: RIGHT FALLOPIAN TUBE Clinical History , 39.1 weeks, previous x2 Final Diagnosis A. PLACENTA, SECTION: 589 G THIRD TRIMESTER PLACENTA WITH TRIVASCULAR UMBILICAL CORD AND UNREMARKABLE PLACENTAL MEMBRANES. B. FALLOPIAN TUBE, LEFT, PARTIAL EXCISION: FULL LUMINAL PORTION OF UNREMARKABLE FALLOPIAN TUBE. C. FALLOPIAN TUBE, RIGHT, PARTIAL EXCISION: FULL LUMINAL PORTION OF UNREMARKABLE FALLOPIAN TUBE. Electronically Signed Ivy Christie M.D. Gross Description A. The specimen is received fresh labeled placenta and is a 589 gram, 15.5 x 15.0 x 4.0 cm. placenta with attached membranes and umbilical cord. The attached membranes are lee, translucent with focal opacities and insert marginally. The umbilical cord measures 43 cm. in length and averages 1 cm. in diameter. The cord inserts eccentrically, 5 cm. to the nearest margin. No true knots or strictures are identified. Cut surface of the umbilical cord reveals 3 vessels. The surface is mckeon-blue with minimal fibrin deposition and appropriate caliber vessels. The maternal surface is red-brown with focal defects. Sectioning reveals red-brown, spongy parenchyma. No lesions are identified. Patient Scheduling Manager sections are submitted in three cassettes as follows: 1- membrane rolls and umbilical cord; 2-3- full thickness sections of placenta. B. Received in formalin labeled "portion of left fallopian tube," is a 0.5 cm in length portion of fallopian tube. No fimbria are present. The outer surface is lee-stevenson and smooth. Sectioning reveals an unremarkable lumen. The specimen is bisected and entirely submitted in one cassette. C. Received in formalin labeled "portion of right fallopian tube," is a 0.6 cm in length portion of fallopian tube. No fimbria are present. The outer surface is lee-stevenson and smooth. Sectioning reveals an unremarkable lumen. The specimen is bisected and entirely submitted in one cassette. 02/02/2019 [facility]02/02/2019
== END 2019-01-30 12:35 | disposition home or self-care (01) | DRG 540 ==
LOC: JLDR 07:30 → J3W 14:05
PROVIDERS: ADMIT Obstetrics & Gynecology; ATTEND Obstetrics & Gynecology
PROC: 10D00Z1 Extraction of Products of Conception, Low, Open Approach (ICD-10-PCS; principal; 2019-01-27)
PROC: 0UB70ZZ Excision of Bilateral Fallopian Tubes, Open Approach (ICD-10-PCS; 2019-01-27)
DX: O34.219 Maternal care for unspecified type scar from previous cesarean delivery (principal); Z3A.39 39 weeks gestation of pregnancy; Z37.0 Single live birth; Z30.2 Encounter for sterilization
CPT/HCPCS: 36415; 85025; 88302-TC; 88307-TC

== ENCOUNTER 2019-02-16 12:12 | Inpatient (IN) | payer OTHER ==
[2019-02-16 12:23] VITALS: BMI 32.1
--- NOTE | 2019-02-16 12:23 | PDOC ---
Rapid Medical Evaluation Time Seen by Provider: 02/16/19 12:19 Medical Evaluation: Allergies Allergy/AdvReac Type Severity Reaction Status Date / Time No Known Allergies Allergy Verified 01/27/19 08:02 02/16/19 12:19 CC: pain and growth to scar PE: incision warm to touch on left side of incision. No discharge or drainage present. Orders: nothing Patient will proceed to ED for continued evaluation. Discharge Disposition - Diagnosis Encounter for postoperative wound check - Referrals - Patient Instructions - Post Discharge Activity
--- NOTE | 2019-02-16 13:14 | PDOC ---
History of Present Illness - General Chief Complaint: Abscess Boil Stated Complaint: LUMP ON THE C SECTION Time Seen by Provider: 02/16/19 12:19 History Source: Patient Exam Limitations: No Limitations - History of Present Illness Initial Comments: 02/16/19 13:10 29 yo female no sig pmh presents to the ED for 2 days of a warm, hot, tender lump around her C section incision site. Pt had C section 01/27/2019 (3rd C section) by Dr. Patrick, no complications since surgery and no hx of abscess. Pt states 1 week ago she noticed a lump in the left lower abdominal site but over the last 2 days it has become red, hot, painful and tender without drainage and no F/C/N/V. Pt denies changes in bowel or bladder habits, CP, SOB. Past History - Past Medical History Allergies/Adverse Reactions: Allergies Allergy/AdvReac Type Severity Reaction Status Date / Time No Known Allergies Allergy Verified 02/16/19 12:23 Home Medications: Ambulatory Orders Vits96/Iron Fum/Folic [ Tablet] 1 each PO DAILY 01/27/19 Ibuprofen [Motrin -] 600 mg PO QID #28 tablet 01/29/19 Oxycodone HCl/Acetaminophen [Percocet 5-325 mg Tablet] 1 tab PO Q6H PRN #20 tablet MDD 4 01/29/19 Vit B Comp with C/Calcium Carb [Gnp B-Complex Plus Vit C Tab] 1 each PO AM #90 tablet 01/30/19 Amoxicillin/Potassium Clav [Augmentin 875-125 Tablet] 1 each PO BID 10 Days #20 tablet 02/16/19 Asthma: No Cancer: No Cardiac Disorders: No COPD: No Diabetes: No HTN: No Seizures: No Thyroid Disease: No - Reproductive History Therapeutic (s) & number: No - Suicide/Smoking/Psychosocial Hx Smoking History: Never smoked Have you smoked in the past 12 months: No Hx Alcohol Use: No Drug/Substance Use Hx: No Substance Use Type: None Hx Substance Use Treatment: No Review of Systems - Review of Systems Constitutional: No: Chills, Fever Respiratory: No: Shortness of Breath Cardiac (ROS): No: Chest Pain, Edema ABD/GI: No: Constipated, Diarrhea, Nausea, Vomiting : No: Burning, Dysuria, Discharge, Frequency, Flank Pain Musculoskeletal: No: Back Pain Integumentary: Yes: Other (red, hot, tender lump to LLQ by the C section incision site) Neurological: No: Numbness, Paresthesia, Weakness *Physical Exam - Vital Signs Last Vital Signs Temp Pulse Resp BP Pulse Ox 98.3 F 91 H 16 141/86 97 02/16/19 12:18 02/16/19 12:18 02/16/19 12:18 02/16/19 12:18 02/16/19 12:18 - Physical Exam General Appearance: Yes: Nourished, Appropriately Dressed. No: Apparent Distress HEENT: positive: EOMI Neck: positive: Supple. negative: Carotid bruit Respiratory/Chest: positive: Lungs Clear, Normal Breath Sounds. negative: Respiratory Distress, Accessory Muscle Use, Crackles, Rales, Rhonchi, Stridor, Wheezing Cardiovascular: positive: Regular Rhythm, Regular Rate, S1, S2. negative: Edema , JVD, Murmur Vascular Pulses: Dorsalis-Pedis (R): 4+, Doralis-Pedis (L): 4+ Gastrointestinal/Abdominal: positive: Flat, Soft, Other (erythema, Tender, warmth, non draining lump to the left lower quadrant). negative: Pulsatile Mass , Distended, Guarding, Rebound ED Treatment Course - LABORATORY CBC & Chemistry Diagram: 02/16/19 13:53 02/16/19 13:53 Medical Decision Making - Medical Decision Making 02/16/19 13:14 29 yo female no sig pmh presents to the ED for 2 days of a warm, hot, tender lump around her C section incision site. Pt had C section 01/27/2019 (3rd C section) by Dr. Patrick, no complications since surgery and no hx of abscess. Pt states 1 week ago she noticed a lump in the left lower abdominal site but over the last 2 days it has become red, hot, painful and tender without drainage and no F/C/N/V. Pt denies changes in bowel or bladder habits, CP, SOB. vitals WNL abdominal exam: erythema, Tender, warmth, non draining lump to the left lower quadrant DDX INLT: abscess, cellulitis, fistula, infected surgical site will do basic labs, blood cultures, PT/INR and type/screen incase surgical intervention needed will do bedside US 02/16/19 15:[address] Patrick who states pt will not need admission due to no fevers or elevated WBC and as long as CT scan neg for concerning findings regarding cellulitis, pt can be DC on Augmentin 02/16/19 18:16 CT scan shows deep abscess, will call OB back for admission 02/16/19 18:21 Pt agrees to admission, receiving IV antibiotics 02/16/19 18:54 Pt will be admitted to the post unit to continue breast feeding and will require antibiotics and OB assessment *DC/Admit/Observation/Transfer Diagnosis at time of Disposition: Encounter for postoperative wound check, Abdominal abscess - Discharge Dispostion Condition at time of disposition: Stable Decision to Admit order: Yes - Prescriptions Prescriptions: Amoxicillin/Potassium Clav [Augmentin 875-125 Tablet] 1 each PO BID 10 Days #20 tablet - Referrals Referrals: Narciso Murrieta MD [Primary Care Provider] - - Patient Instructions - Post Discharge Activity
[2019-02-16 14:07] LABS: BASO % 0.2 % (0-2.0); EOS % 0.5 % (0-4.5); HEMATOCRIT 35.5 % (32.4-45.2); HEMOGLOBIN 11.6 GM/dL (10.7-15.3); LYMPH % 19.2 % (8-40); MCH 27.8 pg (25.7-33.7); MCHC 32.8 g/dl (32.0-36.0); MEAN CELL VOLUME 84.8 fl (80-96); MEAN PLT VOLUME 8.5 fl (7.5-11.1); MONO % 9.2 % (3.8-10.2); NEUT % 70.9 % (42.8-82.8); PLATELET COUNT 426 K/MM3 (134-434); RBC 4.19 M/mm3 (3.60-5.2); WHITE BLOOD COUNT 8.9 K/mm3 (4.0-10.0)
[2019-02-16 14:34] LABS: BILIRUBIN,TOTAL 0.3 mg/dL (0.2-1); BLOOD UREA NITROGEN 5.5 mg/dL (7-18); CALCIUM 8.7 mg/dL (8.5-10.1); CREATININE 0.5 mg/dL (0.55-1.3); POTASSIUM 4.3 mmol/L (3.5-5.1); TOT PROT 6.8 g/dl (6.4-8.2)
--- NOTE | 2019-02-16 15:08 | PDOC ---
Documentation entered by Silvana Vee SCRIBE, acting as scribe for Jennyfer Altamirano MD. Jennyfer Altamirano MD: This documentation has been prepared by the Mariusz serrato Adrianna, SCRIBE, under my direction and personally reviewed by me in its entirety. I confirm that the documentation accurately reflects all work, treatment, procedures, and medical decision making performed by me. Attending Attestation - Resident Resident Name: Dave Medellin - [facility] HPI: The patient is a 29 year old female, with no significant PMH, who presents to the ED for evaluation of lump around her incision site for one week. Patient notes she had her 3rd 3 weeks ago (01/27) with Dr. Patrick without any complications or history of abscess. She has been following up with Dr. Patrick, but noticed a lump developed underneath the incision site 1 week ago. 2 days ago, the lump began to feel warm, became tender, and erythematous. She denies drainage from the site. Her incision is completely healed, and she denies any pain elsewhere in the abdomen. Denies fever, chills, nausea, vomit, chest pain, SOB, urinary symptoms, diarrhea , constipation. Allergies: NKA, NKDA Surgical History: x3 Social History: Denies EtOH, tobacco, or illicit drug use OB: Dr. Patrick - Physicial Exam PE: GENERAL: Awake, alert, and fully oriented, in no acute distress HEAD: No signs of trauma EYES: PERRLA, EOMI, sclera anicteric, conjunctiva clear ENT: Auricles normal inspection, hearing grossly normal, nares patent, oropharynx clear without exudates. Moist mucosa NECK: Normal ROM, supple, no lymphadenopathy, JVD, or masses LUNGS: Breath sounds equal, clear to auscultation bilaterally. No wheezes, and no crackles HEART: Regular rate and rhythm, normal S1 and S2, no murmurs, rubs or gallops ABDOMEN: +Diffuse erythema and tenderness surrounding a well-healed incision. +3cm area of tender induration in the left aspect of the incision. Soft, normoactive bowel sounds. No guarding, no rebound. EXTREMITIES: Normal range of motion, no edema. No clubbing or cyanosis. No cords, erythema, or tenderness NEUROLOGICAL: Cranial nerves II through XII grossly intact. Normal speech, normal gait SKIN: Warm, Dry, normal turgor, no rashes or lesions noted. - Medical Decision Making 02/16/19 14:59 Pt presents to the ED complaining of tenderness and swelling to the area of her C section incision three weeks ago. Patient has no signs of systemic infection. Exam is consistent with cellulitis. There is a discrete area of induration that may represent a fluid collection, although none was found on US. Will check CT and discuss the case with Dr. Kaplan.
[2019-02-16] MEDS ORDERED: CEFTRIAXONE 1,000 MG in DEXTROSE 5%-WATER - 50 ML IVPB ONE (17:46)
[2019-02-16] MEDS ORDERED: CEFTRIAXONE 1 GM/50 ML BAG ONE (18:00)
--- NOTE | 2019-02-16 19:32 | PN ---
Teaching Attending Note Name of Resident: Gabriela Jones ATTENDING PHYSICIAN STATEMENT I saw and evaluated the patient. I reviewed the resident's note and discussed the case with the resident. I agree with the resident's findings and plan as documented. SUBJECTIVE: Patient is a 29 year old woman with no significant PMH, who presents to the ER for evaluation of lump around her incision site x 1 week. She had her 3rd 3 weeks ago (01/27/19) without complications. She has been following up with Dr. Patrick, but noticed a lump developed underneath the incision site 1 week ago. The lump began to feel warm, became tender, and erythematous. She denies drainage from the site. Her incision is completely healed, and she denies any pain elsewhere in the abdomen. Patient denies fever, chills, nausea, vomiting, chest pain, SOB, urinary symptoms, diarrhea, or constipation. Denies any direct trauma to the area. Denies alcohol, tobacco, or illicit drug use. OBJECTIVE: Alert Vital Signs Period Temp Pulse Resp BP Sys/Wang Pulse Ox Last 24 Hr 98.3 F 91 16 141/86 97 HEENT: No Jaundice, eye redness or discharge, PERRLA, EOMI. Normocephalic, atraumatic. External ears are normal and hearing is grossly intact. No nasal discharge. Neck: Supple, nontender. No palpable adenopathy or thyromegaly. No JVD Chest: Good effort. Clear to auscultation and percussion. Heart: Regular. No S3, rub or murmur Abdomen: Not distended. Erythema and tenderness surrounding a well-healed C- section incision. Area of tender induration in the left aspect of the incision. Soft and no HSM. No rebound or guarding. Normal bowel sounds. Ext: Peripheral pulses intact. No leg edema. Skin: Warm and dry. No petechiae, rash or ecchymosis. Neuro: Alert. Oriented x3. CN 2-12 grossly intact. Sensation grossly intact in all four extremities and DTR are symmetric. Psych: Appropriate mood and affect. Good insight. Home Medications Medication Instructions Recorded Vits96/Iron Fum/Folic 1 each PO DAILY 01/27/19 [ Tablet] Ibuprofen [Motrin -] 600 mg PO QID #28 tablet 01/29/19 Oxycodone HCl/Acetaminophen 1 tab PO Q6H PRN #20 tablet MDD 4 01/29/19 [Percocet 5-325 mg Tablet] Vit B Comp with C/Calcium Carb 1 each PO AM #90 tablet 01/30/19 [Gnp B-Complex Plus Vit C Tab] Amoxicillin/Potassium Clav 1 each PO BID 10 Days #20 tablet 02/16/19 [Augmentin 875-125 Tablet] Abnormal Lab Results 02/16/19 13:53 Chloride 108 H Anion Gap 7 L BUN 5.5 L Creatinine 0.5 L AST 11 L Albumin 3.0 L ASSESSMENT AND PLAN: 1. Surgical wound infection - CT scan shows a subcutaneous fluid collection suggestive of abscess. Will consult IR for drainage and send the sample for culture. Will treat with Ancef 1 gm IV q 8 hours pending culture. 2. Hypoalbuminemia - Possibly due to combined effects of malnutrition and inflammation associated with comorbid chronic conditions. Will ensure adequate dietary protein intake and also consult restaurant kitchen and service manager. 3. Obesity Counseled on the risks associated with obesity. Will provide patient all the necessary assistance, counseling and positive reinforcement to facilitate weight loss. Consult restaurant kitchen and service manager. 4. DVT prophylaxis - Lovenox 40 mg SQ q 24 hours. 5. Advance directives - Full code
--- NOTE | 2019-02-16 20:52 | HP ---
CHIEF COMPLAINT: Incisional site tenderness PCP: None Ob-Mimeographer: Dr. Murrieta HISTORY OF PRESENT ILLNESS: Patient is a 29 ear old female with no significant PMH who presents day 20 with tenderness at her incisional site. Pt had a on 01/27/[address] Murrieta. There were no complications with the surgery and she has been recovering well. Pt began having tenderness at the incisional site on the left lower abd area one week ago. She has noticed that a small lump has formed since , and over the past 2 days it has become increasingly warm, tender, and larger in size. There has been no purulence or drainage from the site. She denies any associated fever, chills, nausea, vomiting, SOB, or urinary symptoms. Pt denies any complications with her prior C-Sections or any history of complicated wound healing. No hx of abscesses or cellulitis. She has not taken anything for pain. ER course was notable for: (1) CT abd: [id number] L ant pelvis abscess formation with surrounding subcutaneous edema (2) Given 1gm ceftriaxone (3) Recent Travel: denies PAST MEDICAL HISTORY: Denies PAST SURGICAL HISTORY: 3x C-Sections BL breast implant Gastric bypass Social History: Smoking: denies Alcohol: socially Drugs: denies Family History: Mother: [place], DM, HTN Father: unknown Allergies No Known Allergies Allergy (Verified 02/16/19 12:23) HOME MEDICATIONS: Home Medications Medication Instructions Recorded Vits96/Iron Fum/Folic 1 each PO DAILY 01/27/19 [ Tablet] Ibuprofen [Motrin -] 600 mg PO QID #28 tablet 01/29/19 Oxycodone HCl/Acetaminophen 1 tab PO Q6H PRN #20 tablet MDD 4 01/29/19 [Percocet 5-325 mg Tablet] Vit B Comp with C/Calcium Carb 1 each PO AM #90 tablet 01/30/19 [Gnp B-Complex Plus Vit C Tab] Amoxicillin/Potassium Clav 1 each PO BID 10 Days #20 tablet 02/16/19 [Augmentin 875-125 Tablet] REVIEW OF SYSTEMS CONSTITUTIONAL: Absent: fever, chills, diaphoresis, generalized weakness, malaise, loss of appetite, weight change HEENT: Absent: rhinorrhea, nasal congestion, throat pain, throat swelling, difficulty swallowing, mouth swelling, ear pain, eye pain, visual changes CARDIOVASCULAR: Absent: chest pain, syncope, palpitations, irregular heart rate, lightheadedness , peripheral edema RESPIRATORY: Absent: cough, shortness of breath, dyspnea with exertion, orthopnea, wheezing, stridor, hemoptysis GASTROINTESTINAL: tenderness near abd incision site Absent: abdominal distension, nausea, vomiting, diarrhea, constipation, melena, hematochezia GENITOURINARY: Absent: dysuria, frequency, urgency, hesitancy, hematuria, flank pain, genital pain MUSCULOSKELETAL: Absent: myalgia, arthralgia, joint swelling, back pain, neck pain SKIN: Absent: rash, itching, pallor HEMATOLOGIC/IMMUNOLOGIC: Absent: easy bleeding, easy bruising, lymphadenopathy, frequent infections ENDOCRINE: Absent: unexplained weight gain, unexplained weight loss, heat intolerance, cold intolerance NEUROLOGIC: Absent: headache, focal weakness or paresthesias, dizziness, unsteady gait, seizure, mental status changes, bladder or bowel incontinence PSYCHIATRIC: Absent: anxiety, depression, suicidal or homicidal ideation, hallucinations. PHYSICAL EXAMINATION Vital Signs - 24 hr 02/16/19 12:18 Temperature 98.3 F Pulse Rate 91 H Respiratory 16 Rate Blood Pressure 141/86 O2 Sat by Pulse 97 Oximetry (%) GENERAL: Awake, alert, and fully oriented, in no acute distress. HEAD: Normal with no signs of trauma. EYES: Pupils equal, round and reactive to light, extraocular movements intact, sclera anicteric, conjunctiva clear. No lid lag. EARS, NOSE, THROAT: Ears normal, nares patent, oropharynx clear without exudates. Moist mucous membranes. NECK: Normal range of motion, supple without lymphadenopathy, JVD, or masses. LUNGS: Breath sounds equal, clear to auscultation bilaterally. No wheezes, and no crackles. No accessory muscle use. HEART: Regular rate and rhythm, normal S1 and S2 without murmur, rub or gallop. ABDOMEN: Soft, nontender, not distended, normoactive bowel sounds, no guarding, no rebound, no masses. No hepatomegaly or splenomegaly. MUSCULOSKELETAL: Normal range of motion at all joints. No bony deformities or tenderness. No CVA tenderness. UPPER EXTREMITIES: 2+ pulses, warm, well-perfused. No cyanosis. No clubbing. No peripheral edema. LOWER EXTREMITIES: 2+ pulses, warm, well-perfused. No calf tenderness. No peripheral edema. NEUROLOGICAL: Cranial nerves II-XII intact. Normal speech. Normal gait. PSYCHIATRIC: Cooperative. Good eye contact. Appropriate mood and affect. SKIN: Warm, dry, normal turgor, normal capillary refill. Tenderness surgical incision site in left pelvic region. Small, warm 2cm mass tender to palpation. No gross erythema, no purulent drainage. Rest of incision is healing well. Laboratory Results - last 24 hr CBC, BMP 02/16/19 13:53 02/16/19 13:53 ASSESSMENT/PLAN: Patient is a 29 ear old female with no significant PMH who presents day 20 with tenderness at her incisional site for one week. #Post-surgical skin incision infection Underlying abscess as seen on CT imaging. No overlying cellulitis noted. CT abd: [id number] L ant pelvis abscess formation with surrounding subcutaneous edema May need I&D given size of abscess. Consulting IR for evaluation in am. Will cont to treat with 1gm ancef Q8H in meantime (pt does not appear toxic, in no acute distress) Dr. Murrieta has been contacted and will see pt in am #FEN No standing fluids for now Regular diet #DVT ppx Heparin SQ TID #Dispo Monitor on med-surg Visit type - Emergency Visit Emergency Visit: Yes ED Registration Date: 02/16/19 Care time: The patient presented to the Emergency Department on the above date and was hospitalized for further evaluation of their emergent condition. - New Patient This patient is new to me today: Yes Date on this admission: 02/17/19 - Critical Care Critical Care patient: No ATTENDING PHYSICIAN STATEMENT I saw and evaluated the patient. I reviewed the resident's note and discussed the case with the resident. I agree with the resident's findings and plan as documented. SUBJECTIVE: OBJECTIVE: ASSESSMENT AND PLAN:
[2019-02-16] MEDS ORDERED: HEPARIN NA (PORCINE) 5,000 UNITS/ML 1ML VIAL ONE (22:13)
[2019-02-16] MEDS: HEPARIN NA (PORCINE) 5,000 UNITS/ML 1ML VIAL SQ SCH (22:27)
[2019-02-17] MEDS ORDERED: CEFAZOLIN 1 GM in DEXTROSE 5%-WATER - 50 ML IVPB SCH (02:00)
[2019-02-17] MEDS ORDERED: ACETAMINOPHEN 1000 MG/100 ML VIAL (NON FORMULARY) IVPB ONE (02:42)
[2019-02-17] MEDS: HEPARIN NA (PORCINE) 5,000 UNITS/ML 1ML VIAL SQ SCH (06:39)
[2019-02-17 07:40] LABS: BASO % 0.6 % (0-2.0); EOS % 1.7 % (0-4.5); HEMATOCRIT 34.5 % (32.4-45.2); HEMOGLOBIN 11.5 GM/dL (10.7-15.3); LYMPH % 26.7 % (8-40); MCH 28.4 pg (25.7-33.7); MCHC 33.2 g/dl (32.0-36.0); MEAN CELL VOLUME 85.5 fl (80-96); MEAN PLT VOLUME 8.7 fl (7.5-11.1); MONO % 8.4 % (3.8-10.2); NEUT % 62.6 % (42.8-82.8); PLATELET COUNT 389 K/MM3 (134-434); RBC 4.04 M/mm3 (3.60-5.2); RDW 13.9 % (11.6-15.6); WHITE BLOOD COUNT 7.5 K/mm3 (4.0-10.0)
[2019-02-17 08:12] LABS: ALBUMIN 2.8 g/dl (3.4-5.0); BILIRUBIN,TOTAL 0.5 mg/dL (0.2-1); BLOOD UREA NITROGEN 6.4 mg/dL (7-18); CALCIUM 8.7 mg/dL (8.5-10.1); CREATININE 0.5 mg/dL (0.55-1.3); POTASSIUM 4.4 mmol/L (3.5-5.1); TOT PROT 6.4 g/dl (6.4-8.2)
--- NOTE | 2019-02-17 09:35 | PN ---
Physical Exam: SUBJECTIVE: Patient seen and examined at bedside. pt states she has abdominal pain that has been worsening x1w. pt denies n/v/d. pt denies CP, SOB. OBJECTIVE: Vital Signs Period Temp Pulse Resp BP Sys/Wang Pulse Ox Last 24 Hr 98.3 F-99.5 F 62-94 16-20 125-145/68-91 97-98 GENERAL: The patient is awake, alert, and fully oriented, in no acute distress. LUNGS: Breath sounds equal, clear to auscultation bilaterally, no wheezes, no crackles, no accessory muscle use. HEART: Regular rate and rhythm, S1, S2 without murmur, rub or gallop. ABDOMEN: Soft, tender to palpation around incisional site. erythema around wound. no drainage. nondistended, normoactive bowel sounds, no guarding, no rebound EXTREMITIES: 2+ pulses, warm, well-perfused, no edema. SKIN: Warm, dry, normal turgor, no rashes or lesions noted Laboratory Results - last 24 hr CBC, BMP 02/17/19 07:01 02/17/19 07:01 Current Medications Cefazolin Sodium (Ancef 1 Gm Premixed Ivpb -) 1 gm in 50 mls @ 100 mls/hr IVPB Q8H-IV CHRISTOPHER ASSESSMENT/PLAN: 29 yo F no PMH presented to ED with pain around incisional site from C section 20 days ago. pain worsened in past 2 days. Pt is admitted for abdominal wall abscess Abdominal wall abscess -CT abdomen / pelvis reviewed, see above -IR drainage today, culture fluids -Cefazolin day 1 -WINCH OPERATOR following s/p C section -pt encouraged to continue pumping -antibiotics reviewed and safe while DVT ppx -Heparin Dispo: monitor until medically optimized Visit type - Emergency Visit Emergency Visit: No - New Patient This patient is new to me today: Yes Date on this admission: 02/17/19 - Critical Care Critical Care patient: No - Discharge Referral Referred to [facility] Med P.C.: No ATTENDING PHYSICIAN STATEMENT I saw and evaluated the patient. I reviewed the resident's note and discussed the case with the resident. I agree with the resident's findings and plan as documented. SUBJECTIVE: OBJECTIVE: ASSESSMENT AND PLAN:
[2019-02-17] MEDS: CEFAZOLIN 1 GM/D5W 1 GM/50 ML BAG IVPB SCH ×2 (09:59→17:15)
--- NOTE | 2019-02-17 13:16 | PN ---
Teaching Attending Note Name of Resident: Billie Hall ATTENDING PHYSICIAN STATEMENT I saw and evaluated the patient. I reviewed the resident's note and discussed the case with the resident. I agree with the resident's findings and plan as documented. SUBJECTIVE:c/o tenderness at incision site. no improvement since arrival. denies Cp, SOB, fever, chills, N/V/C/D OBJECTIVE: Last Vital Signs Temp Pulse Resp BP Pulse Ox 98 F 61 13 133/90 100 02/17/19 11:25 02/17/19 12:59 02/17/19 12:59 02/17/19 12:59 02/17/19 12:59 General NAD CV S1 S2 RRR no murmur/rub/gallop Lungs CTA B/L no wheezing/rales/rhonchi Abdomen soft low lying transverse wtih tenderness along aida left 2/3 of it. firm area unable to tell if fluctant due to pain no warmth no drainage ASSESSMENT AND PLAN: 29yo GF wtih PMH s/p gastric sleeve presented to the ER wtih pain at site done on 01/27/19 and found to have abscess 1. abdominal wall abscess- seen on ct 4.7x4x2 cm. NPO for drainage by IR today. on Cefazolin day 1. will f/u Cx. OB on board 2. s/p - pt is currently pumping. encouraged patient to continue to use breastpump. milk is safe for consumption. no indication to dump with radiation or contrast exposure. encourage to pump frequently. stay hydrated. will start pre-lupe vitamin 3. s/p gastric sleeve 4. DVT ppx- EAM
[2019-02-17] MEDS: PRENATAL VITAMINS W/ FOLIC ACID TABLET (FP) PO SCH (14:37)
[2019-02-17] MEDS: ACETAMINOPHEN 325 MG TABLET (FP) PO PRN (20:32)
[2019-02-18] MEDS: CEFAZOLIN 1 GM/D5W 1 GM/50 ML BAG IVPB SCH ×3 (01:59→18:39)
[2019-02-18 09:17] LABS: BASO % 0.5 % (0-2.0); EOS % 1.9 % (0-4.5); HEMATOCRIT 37.8 % (32.4-45.2); HEMOGLOBIN 12.2 GM/dL (10.7-15.3); LYMPH % 29.3 % (8-40); MCH 27.8 pg (25.7-33.7); MCHC 32.3 g/dl (32.0-36.0); MEAN PLT VOLUME 9.1 fl (7.5-11.1); MONO % 8.4 % (3.8-10.2); NEUT % 59.9 % (42.8-82.8); PLATELET COUNT 384 K/MM3 (134-434); RDW 13.8 % (11.6-15.6)
[2019-02-18 09:32] LABS: ALBUMIN 2.9 g/dl (3.4-5.0); BILIRUBIN,TOTAL 0.3 mg/dL (0.2-1); BLOOD UREA NITROGEN 6.4 mg/dL (7-18); CREATININE 0.5 mg/dL (0.55-1.3); MAGNESIUM 2.5 mg/dL (1.8-2.4); PHOSPHOROUS 4.9 mg/dL (2.5-4.9); TOT PROT 6.5 g/dl (6.4-8.2)
[2019-02-18] MEDS: PRENATAL VITAMINS W/ FOLIC ACID TABLET (FP) PO SCH (09:32)
[2019-02-18] MEDS: ACETAMINOPHEN 325 MG TABLET (FP) PO PRN (09:32)
--- NOTE | 2019-02-18 10:46 | PN ---
Teaching Attending Note Name of Resident: Billie Hall ATTENDING PHYSICIAN STATEMENT I saw and evaluated the patient. I reviewed the resident's note and discussed the case with the resident. I agree with the resident's findings and plan as documented. SUBJECTIVE:pain is improved. denies Cp, SOB, fever, chills, N/V/C/D OBJECTIVE: Last Vital Signs Temp Pulse Resp BP Pulse Ox 97.8 F 57 L 18 100/40 L 100 02/18/19 06:00 02/18/19 06:00 02/18/19 06:00 02/18/19 06:00 02/17/19 12:59 General NAD Abdomen soft low lying transverse scar with YESENIA drain at lateral most edge with serosangeonous drainage. some tenderness around the drain. ASSESSMENT AND PLAN: 29yo GF wtih PMH s/p gastric sleeve presented to the ER wtih pain at site done on 01/27/19 and found to have abscess 1. abdominal wall abscess- s/P I&D with YESENIA drain left in 02/17. cx were not sent from IR. will send at this time. on cefazolin day 2. will f/u cx and transtion over to po abx that is safe in .will need repeat imaging in a week to see if abscess has fully drained. local wound care. OB on board. 2. s/p - vitamin. safe to pump at this time 3. s/p gastric sleeve 4. DVT ppx- EAM
--- NOTE | 2019-02-18 11:42 | PN ---
Physical Exam: SUBJECTIVE: Patient seen and examined at bedside. pt still has lower abdominal pain and states numbness since procedure around abdomen. OBJECTIVE: Vital Signs Period Temp Pulse Resp BP Sys/Wang Pulse Ox Last 24 Hr 97.8 F-98.6 F 53-75 11-18 100-138/40-90 98-100 GENERAL: The patient is awake, alert, and fully oriented, in no acute distress. LUNGS: Breath sounds equal, clear to auscultation bilaterally, no wheezes, no crackles, no accessory muscle use. HEART: Regular rate and rhythm, S1, S2 without murmur, rub or gallop. ABDOMEN: Soft, tender around incisional site, hypogastric region. nondistended , normoactive bowel sounds, no guarding. YESENIA drain. EXTREMITIES: 2+ pulses, warm, well-perfused, no edema. SKIN: Warm, dry, normal turgor, no rashes or lesions noted Laboratory Results - last 24 hr 02/18/19 02/18/19 08:43 08:43 WBC 6.0 RBC 4.40 Hgb 12.2 Hct 37.8 MCV 86.0 MCH 27.8 MCHC 32.3 RDW 13.8 Plt Count 384 MPV 9.1 Absolute Neuts (auto) 3.6 Neutrophils % 59.9 Lymphocytes % 29.3 Monocytes % 8.4 Eosinophils % 1.9 Basophils % 0.5 Nucleated RBC % 0 Sodium 141 Potassium 5.0 Chloride 105 Carbon Dioxide 32 Anion Gap 3 L BUN 6.4 L Creatinine 0.5 L Est GFR (CKD-EPI)AfAm 149.47 Est GFR (CKD-EPI)NonAf 128.97 Random Glucose 76 Calcium 9.0 Phosphorus 4.9 Magnesium 2.5 H Total Bilirubin 0.3 AST 10 L ALT 12 L Alkaline Phosphatase 103 Total Protein 6.5 Albumin 2.9 L Current Medications Acetaminophen (Tylenol -) 650 mg PO Q4H PRN PRN Reason: PAIN LEVEL 4-6 Last Admin: 02/18/19 09:32 Dose: 650 mg Cefazolin Sodium (Ancef 1 Gm Premixed Ivpb -) 1 gm in 50 mls @ 100 mls/hr IVPB Q8H-IV CHRISTOPHER Last Admin: 02/18/19 09:32 Dose: 100 mls/hr Multivit/Folic Acid/Iron ( Vitamins (Sjr) -) 1 tab PO DAILY CHRISTOPHER Last Admin: 02/18/19 09:32 Dose: [address] A/P Impression: An approximately 4.7 x 4 x 2 cm left anterior pelvis subcutaneous fluid collection is seen suggestive of abscess formation with surrounding subcutaneous edema as well as overlying skin edema. No CT evidence of intra- abdominal extension. A small amount of free fluid is noted within the pelvic cul -de-sac. Status post gastric surgery. A 2.5 cm left hepatic lobe hypodense focus is seen probably on the basis of normal variation, less likely representing a focal nonspecific lesion. Correlation with sonography is suggested, nonemergent unless otherwise clinically indicated. The uterus appears somewhat enlarged in overall size. If clinically indicated correlate with sonography. ASSESSMENT/PLAN: 29 yo F no PMH presented to ED with pain around incisional site from C section 20 days ago. pain worsened in past 2 days. Pt is admitted for abdominal wall abscess. Abdominal wall abscess -CT abdomen / pelvis reviewed, see above -IR drainage, w/ YESENIA draining day 2 . awaiting cultures -Cefazolin day 2 -LEAD MILITARY ANALYST following s/p C section -pt encouraged to continue pumping -antibiotics reviewed and safe while DVT ppx -Heparin Visit type - Emergency Visit Emergency Visit: No - New Patient This patient is new to me today: No - Critical Care Critical Care patient: No - Discharge Referral Referred to [facility] Med P.C.: No ATTENDING PHYSICIAN STATEMENT I saw and evaluated the patient. I reviewed the resident's note and discussed the case with the resident. I agree with the resident's findings and plan as documented. SUBJECTIVE: OBJECTIVE: ASSESSMENT AND PLAN:
[2019-02-19] MEDS: CEFAZOLIN 1 GM/D5W 1 GM/50 ML BAG IVPB SCH ×3 (01:47→17:01)
[2019-02-19 08:34] LABS: HEMATOCRIT 36.2 % (32.4-45.2); HEMOGLOBIN 11.8 GM/dL (10.7-15.3); MCHC 32.7 g/dl (32.0-36.0); MEAN CELL VOLUME 85.4 fl (80-96); MEAN PLT VOLUME 8.7 fl (7.5-11.1); PLATELET COUNT 400 K/MM3 (134-434); RBC 4.24 M/mm3 (3.60-5.2); RDW 13.6 % (11.6-15.6); WHITE BLOOD COUNT 5.2 K/mm3 (4.0-10.0)
[2019-02-19 08:57] LABS: CALCIUM 8.9 mg/dL (8.5-10.1); CREATININE 0.5 mg/dL (0.55-1.3); MAGNESIUM 1.9 mg/dL (1.8-2.4); PHOSPHOROUS 5.4 mg/dL (2.5-4.9); POTASSIUM 4.7 mmol/L (3.5-5.1)
[2019-02-19] MEDS: PRENATAL VITAMINS W/ FOLIC ACID TABLET (FP) PO SCH (09:06)
[2019-02-19] MEDS: ACETAMINOPHEN 325 MG TABLET (FP) PO PRN ×2 (09:15→16:59)
[2019-02-19 09:58] LABS: BLOOD UREA NITROGEN 10.5 mg/dL (7-18)
--- NOTE | 2019-02-19 13:03 | CONS ---
DATE OF CONSULTATION: 02/17/2019 REASON FOR CONSULTATION: Incisional abscess post section. HISTORY: The patient is a 29-year-old female with 3 previous sections, had a repeat section and tubal ligation approximately a week ago. She came to the ER complaining of incisional redness, on CT scan was found to have a 4-cm subcutaneous collection, which was consistent with abscess. Patient was admitted for IV antibiotic. Examination of the wound showed there was slight redness around the edge of the wound but the wound is intact and no masses were palpable, no discharge from the wound. Patient was instructed to have drainage by Interventional Radiology and continue IV antibiotic and will follow up. Marilin [id number]
[2019-02-19] MEDS ORDERED: IBUPROFEN 600 MG TABLET (FP) PO PRN (13:54)
--- NOTE | 2019-02-19 14:28 | PN ---
Physical Exam: SUBJECTIVE: Patient seen and examined at bedside. Pt states she has been passing gas. She states tat she still has numbness around incision site from C section and pain around YESENIA tube. OBJECTIVE: Vital Signs Period Temp Pulse Resp BP Sys/Wang Pulse Ox Last 24 Hr 97.9 F-99.5 F 59-72 18-20 124-136/61-84 GENERAL: The patient is awake, alert, and fully oriented, in no acute distress. LUNGS: Breath sounds equal, clear to auscultation bilaterally, no wheezes, no crackles, no accessory muscle use. HEART: Regular rate and rhythm, S1, S2 without murmur, rub or gallop. ABDOMEN: Soft, nondistended, normoactive bowel sounds. Tender around YESENIA tube EXTREMITIES: 2+ pulses, warm, well-perfused, no edema. SKIN: Warm, dry, normal turgor, no rashes or lesions noted CBC, BMP 02/19/19 07:50 02/19/19 07:50 Current Medications Acetaminophen (Tylenol -) 650 mg PO Q4H PRN PRN Reason: PAIN LEVEL 4-6 Last Admin: 02/19/19 09:15 Dose: 650 mg Cefazolin Sodium (Ancef 1 Gm Premixed Ivpb -) 1 gm in 50 mls @ 100 mls/hr IVPB Q8H-IV CHRISTOPHER Last Admin: 02/19/19 09:06 Dose: 100 mls/hr Ibuprofen (Motrin -) 600 mg PO Q6H PRN PRN Reason: FEVER Multivit/Folic Acid/Iron ( Vitamins (Sjr) -) 1 tab PO DAILY CHRISTOPHER Last Admin: 02/19/19 09:06 Dose: 1 tab ASSESSMENT/PLAN: CT A/P Impression: An approximately 4.7 x 4 x 2 cm left anterior pelvis subcutaneous fluid collection is seen suggestive of abscess formation with surrounding subcutaneous edema as well as overlying skin edema. No CT evidence of intra- abdominal extension. A small amount of free fluid is noted within the pelvic cul -de-sac. Status post gastric surgery. A 2.5 cm left hepatic lobe hypodense focus is seen probably on the basis of normal variation, less likely representing a focal nonspecific lesion. Correlation with sonography is suggested, nonemergent unless otherwise clinically indicated. The uterus appears somewhat enlarged in overall size. If clinically indicated correlate with sonography. ASSESSMENT/PLAN: 29 yo F no PMH presented to ED with pain around incisional site from C section 20 days ago. pain worsened in past 2 days. Pt is admitted for abdominal wall abscess. Abdominal wall abscess -CT abdomen / pelvis reviewed, see above -IR drainage, w/ YESENIA draining day 3 . awaiting cultures -Cefazolin day 3 -CHRONIC DISEASE MANAGER following -rpt imaging in 1 week is recommended s/p C section -pt encouraged to continue pumping -antibiotics reviewed and safe while DVT ppx -early ambulation Visit type - Emergency Visit Emergency Visit: No - New Patient This patient is new to me today: No - Critical Care Critical Care patient: No - Discharge Referral Referred to [facility] Med P.C.: No ATTENDING PHYSICIAN STATEMENT I saw and evaluated the patient. I reviewed the resident's note and discussed the case with the resident. I agree with the resident's findings and plan as documented. SUBJECTIVE: OBJECTIVE: ASSESSMENT AND PLAN:
--- NOTE | 2019-02-19 16:21 | PN ---
Teaching Attending Note Name of Resident: Billie Hall ATTENDING PHYSICIAN STATEMENT I saw and evaluated the patient. I reviewed the resident's note and discussed the case with the resident. I agree with the resident's findings and plan as documented. SUBJECTIVE:states pain has improved. denies Cp, SOb, fver, chills, N/V/C/D. reports no drainage to YESENIA drain since this am OBJECTIVE: Last Vital Signs Temp Pulse Resp BP Pulse Ox 99.5 F 72 20 124/83 100 02/19/19 14:00 02/19/19 14:00 02/19/19 14:00 02/19/19 14:00 02/17/19 12:59 General NAD Abdomen soft low lying transverse scar with YESENIA drain at lateral most edge with serosangeonous drainage. some tenderness around the drain. ASSESSMENT AND PLAN: 29yo GF wtih PMH s/p gastric sleeve presented to the ER wtih pain at site done on 01/27/19 and found to have abscess 1. abdominal wall abscess- s/P I&D with YESENIA drain left in 02/17. will check abdominal u/s to see if abscess has resolved as pt is very adamant that she does not want to leave with drain in place.on cefazolin day 3. will f/u cx and transtion over to po abx that is safe in . local wound care. OB on board. 2. s/p - vitamin. safe to pump at this time 3. s/p gastric sleeve 4. DVT ppx- EAM
--- NOTE | 2019-02-19 19:25 | PN ---
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 incision dry YESENIA drain 10cc yellow discharge impression resolving abscess s/o drainage of abscess cultures so far negative plan if cultures negative can be d/c home on po antibiotics 1 week follow up in H care
--- NOTE | 2019-02-19 19:37 | CONS ---
DATE OF CONSULTATION: 02/17/2019 REASON FOR CONSULTATION: Status post section with a subcutaneous abscess. HISTORY OF PRESENT ILLNESS: This patient is a 29-year-old female 4, para 3, with 3 previous sections. She had a repeat section 20 days ago, now patient came to the emergency room complaining of tenderness around the left incision area. No fevers. No wound discharge. CT scan had showed a 4-cm deep subcutaneous tissue abscess. Patient was admitted for IV antibiotic and also for subcutaneous drainage. PHYSICAL EXAMINATION: Vital signs: Patient afebrile. General: Alert with no complaints. Abdomen: Soft, nontender. Pelvic: Uterus was firm, nontender. There was a small area of redness on the left side of the incision with deep tenderness with palpation. No masses were palpable, and pelvic exam was negative. IMPRESSION: Deep subcutaneous abscess post section. PLAN: Admit IV antibiotic and drainage of the abscess. Marilin [id number]
[2019-02-20] MEDS: CEFAZOLIN 1 GM/D5W 1 GM/50 ML BAG IVPB SCH ×2 (01:10→10:50)
[2019-02-20 09:25] VITALS: BP 129/61; PULSE 60; TEMP 98.5
[2019-02-20] MEDS: PRENATAL VITAMINS W/ FOLIC ACID TABLET (FP) PO SCH (10:50)
--- NOTE | 2019-02-20 12:40 | PN ---
Teaching Attending Note Name of Resident: Billie Hall ATTENDING PHYSICIAN STATEMENT I saw and evaluated the patient. I reviewed the resident's note and discussed the case with the resident. I agree with the resident's findings and plan as documented. SUBJECTIVE:asymptomatic. denies Cp, SOB, fever, chills, N/V/C/D OBJECTIVE: Last Vital Signs Temp Pulse Resp BP Pulse Ox 98.5 F 60 18 129/61 100 02/20/19 09:24 02/20/19 09:24 02/20/19 09:24 02/20/19 09:24 02/17/19 12:59 General NAD ASSESSMENT AND PLAN: 29yo GF wtih PMH s/p gastric sleeve presented to the ER wtih pain at site done on 01/27/19 and found to have abscess 1. abdominal wall abscess- s/P I&D with YESENIA drain left in 02/17. minimal output today. repeat u/s not showing any collection. pt very adamant that she will not leave with drain. will have IR check and see under u/s if they are able to pull it. Cx all negative. will d/c on clinda for 1 week and SALES SERVICE REP follow up for repeat scan. infomred her if baby develops diarrhea she should start dumping milk and not feed to baby. bacid on discharge 2. s/p - vitamin. safe to pump at this time 3. s/p gastric sleeve 4. DVT ppx- EAM 5. d/c home
--- NOTE | 2019-02-20 14:10 | DS ---
Physical Exam: SUBJECTIVE: Patient seen and examined at bedside. pt states she has discomfort around YESENIA drain. pt wants to have drain removed before returning home. OBJECTIVE: Vital Signs Period Temp Pulse Resp BP Sys/Wang Pulse Ox Last 24 Hr 97.8 F-99.1 F 60-75 18-18 113-137/61-86 PHYSICAL EXAM GENERAL: The patient is awake, alert, and fully oriented, in no acute distress. LUNGS: Breath sounds equal, clear to auscultation bilaterally, no wheezes, no crackles, no accessory muscle use. HEART: Regular rate and rhythm, S1, S2 without murmur, rub or gallop. ABDOMEN: Soft, nontender, nondistended, normoactive bowel sounds, no guarding. EXTREMITIES: 2+ pulses, warm, well-perfused, no edema. SKIN: Warm, dry, normal turgor, no rashes or lesions noted. CT A/P Impression: An approximately 4.7 x 4 x 2 cm left anterior pelvis subcutaneous fluid collection is seen suggestive of abscess formation with surrounding subcutaneous edema as well as overlying skin edema. No CT evidence of intra- abdominal extension. A small amount of free fluid is noted within the pelvic cul -de-sac. Status post gastric surgery. A 2.5 cm left hepatic lobe hypodense focus is seen probably on the basis of normal variation, less likely representing a focal nonspecific lesion. Correlation with sonography is suggested, nonemergent unless otherwise clinically indicated. The uterus appears somewhat enlarged in overall size. If clinically indicated correlate with sonography. HOSPITAL COURSE: Date of Admission:02/16/19 29 yo F no PMH presented to ED with pain around incisional site from C section 20 days ago. pain worsened in past 2 days. Pt is admitted for abdominal wall abscess. Pt had a CT abdomen pelvis, results were reviewed and stated above. Pt underwent IR guided procedure for drainage and maintained a YEESNIA drain for 3 days. Pt was treated with cefazolin for 4 days. Pt was also followed by PATROL DRIVER. Pt had repeat U/S showing that the abscess was resolving. Pt is discharged with clindamycin for 1 week. Pt should f/u with PCP and transonic engineer in one week. Pt advised to take bacid for two weeks. pt advised to dc clindamycin and f/u with PCP if the infant develops diarrhea. Date of Discharge: 02/20/19 Minutes to complete discharge: 36 Discharge Summary Reason For Visit: ABDOMINAL ABCESS Current Active Problems Abdominal abscess (Acute) Encounter for postoperative wound check (Acute) Condition: Improved - Instructions Diet, Activity, Other Instructions: You came into the hospital for pain around the site of your . We did a scan of your abdomen showing you have an abscess in your abdomen. You were treated with antibiotics. You had a procedure to drain the abscess. Please continue taking Clindamycin 300 mg four times a day for one week. You may continue while taking the antibiotic. If your infant begins to have diarrhea, please consult your physician and discontinue the clindamycin. You should also continue to take a probiotic, Bacid, for two weeks. Please follow up with your shoe stamper, Dr. Murrieta, to monitor your health. You should follow up within 1 week. Please follow up with your primary care physician to monitor your improvement and proper wound care. Please return to the ER if you have any signs or symptoms of chest pain, shortness of breath, uncontrollable fever, chills, nausea, vomiting, numbness, tingling, or weakness in any part of your body, changes in vision, or slurred speech. Please return to the ER if symptoms persist, worsen, or new symptoms arise. Referrals: [facility] [place] [Provider Group] Narciso Murrieta MD [Primary Care Provider] - Disposition: HOME - Home Medications Comprehensive Discharge Medication List: Ambulatory Orders Acetaminophen [Tylenol .Regular Strength -] 650 mg PO Q4H PRN tablet 02/20/19 Clindamycin [Cleocin -] 300 mg PO Q6H 7 Days #28 capsule 02/20/19 Lactobacillus Acidophilus [Bacid -] 1 each PO DAILY 14 Days #14 capsule Vitamins (Sjr) - 1 tab PO DAILY 30 Days #30 tablet 02/20/19 This patient is new to me today: No Emergency Visit: No Critical Care patient: No - Discharge Referral Referred to [facility] No ATTENDING PHYSICIAN STATEMENT I saw and evaluated the patient. I reviewed the resident's note and discussed the case with the resident. I agree with the resident's findings and plan as documented. SUBJECTIVE: OBJECTIVE: ASSESSMENT AND PLAN:
== END 2019-02-20 13:30 | disposition home or self-care (01) | DRG 561 ==
LOC: JER 12:12 → JERBED 19:32 → J3W 23:25
PROVIDERS: ADMIT Internal Medicine; ATTEND Internal Medicine
PROC: 0W9F30Z Drainage of Abdominal Wall with Drainage Device, Percutaneous Approach (ICD-10-PCS; principal; 2019-02-17)
PROC: 0WPJX0Z Removal of Drainage Device from Pelvic Cavity, External Approach (ICD-10-PCS; 2019-02-20)
DX: O86.01 Infection of obstetric surgical wound, superficial incisional site (principal); O90.9 Complication of the puerperium, unspecified; E66.8 Other obesity; Z68.32 Body mass index [BMI] 32.0-32.9, adult; L03.311 Cellulitis of abdominal wall; E88.09 Other disorders of plasma-protein metabolism, not elsewhere classified; Z98.84 Bariatric surgery status
CPT/HCPCS: 10030; 36415; 74177-TC; 76705-TC; 80048; 80053; 83735; 84100; 84703; 85025; 85027; 87040; 87070; 87075; 87186; 87205; 87899; 99283-25; C1729; C1769; J0131; J1644

== ENCOUNTER 2019-05-29 21:01 | Emergency (ER) | payer OTHER ==
[2019-05-29 21:25] VITALS: TEMP 98.3; BMI 65.8
--- NOTE | 2019-05-29 22:31 | PDOC ---
History of Present Illness - General Chief Complaint: Urinary Problem Stated Complaint: ABD PAIN Time Seen by Provider: 05/29/19 22:31 History Source: Patient Exam Limitations: No Limitations - History of Present Illness Initial Comments: 05/29/19 23:11 Patient is a 29 year old female with no significant PMH who presents with dysuria x3 days. Pt complains of burning with urination, urinary frequency, and hematuria. Associated suprapubic pain. No fevers, chills, nausea, vomiting. No hx of UTIs or kidney stones. Pain with urination has become 10/10, so she decided to come into ED. Pt also recently had a tummy tuck surgery in [place] 1 month ago. Since, she has noticed drainage and "difficulty healing" of her abdominal wound. States that she follows up with her plastic surgeon via video chat whenever she has concerns. Allergies: NKDA Surgical hx: , tummy tuck Past History - Past Medical History Allergies/Adverse Reactions: Allergies Allergy/AdvReac Type Severity Reaction Status Date / Time No Known Allergies Allergy Verified 02/16/19 12:23 Home Medications: Ambulatory Orders Acetaminophen [Tylenol .Regular Strength -] 650 mg PO Q4H PRN tablet 02/20/19 Clindamycin [Cleocin -] 300 mg PO Q6H 7 Days #28 capsule 02/20/19 Lactobacillus Acidophilus [Bacid -] 1 each PO DAILY 14 Days #14 capsule Vitamins (Sjr) - 1 tab PO DAILY 30 Days #30 tablet 02/20/19 Phenazopyridine HCl [Pyridium -] 200 mg PO TID PRN #12 tablet 05/30/19 Sulfamethoxazole/Trimethoprim [Bactrim Ds -] 1 tab PO BID #7 tablet 05/30/19 Asthma: No Cancer: No Cardiac Disorders: No CVA: No COPD: No Dementia: No Diabetes: No GI Disorders: No Disorders: No HTN: No Liver Disease: No Seizures: No Thyroid Disease: No - Reproductive History Therapeutic (s) & number: No - Psycho Social/Smoking Cessation Hx Smoking History: Former smoker Have you smoked in the past 12 months: No Information on smoking cessation initiated: No Hx Alcohol Use: No Drug/Substance Use Hx: No Substance Use Type: None Hx Substance Use Treatment: No Review of Systems - Review of Systems Able to Perform ROS?: Yes Constitutional: No: Symptoms Reported, See HPI, Chills, Diaphoresis, Fever, Loss of Appetite, Malaise, Night Sweats, Weakness, Weight Stable, Unintentional Wgt. Loss, Unexplained wgt Loss, Other HEENTM: No: Symptoms Reported, See HPI, Eye Pain, Blurred Vision, Tearing, Recent change in vision, Double Vision, Cataracts, Ear Pain, Ocular Prothesis, Ear Discharge, Nose Pain, Nose Congestion, Tinnitus, Nose Bleeding, Hearing Loss , Throat Pain, Throat Swelling, Mouth Pain, Dental Problems, Difficulty Swallowing, Mouth Swelling, Other Respiratory: No: Symptoms reported, See HPI, Cough, Orthopnea, Shortness of Breath, SOB with Exertion, SOB at Rest, Stridor, Wheezing, Productive cough, Hemoptysis, Other Cardiac (ROS): No: Symptoms Reported, See HPI, Chest Pain, Edema, Irregular Heart Rate, Lightheadedness, Palpitations, Syncope, Chest Tightness, Other ABD/GI: Yes: Other (Abd pain surrounding sugical wound) : Yes: Burning, Dysuria, Frequency, Hematuria, Incontinence, Pain, Urgency Musculoskeletal: No: Symptoms Reported, See HPI, Back Pain, Gout, Joint Pain, Joint Swelling, Muscle Pain, Muscle Weakness, Neck Pain, Joint Stiffness, Other *Physical Exam - Vital Signs Last Vital Signs Temp Pulse Resp BP Pulse Ox 98.3 F 99 H 19 129/72 99 05/29/19 21:18 05/29/19 21:18 05/29/19 21:18 05/29/19 21:18 05/29/19 21:18 - Physical Exam General Appearance: Yes: Nourished, Appropriately Dressed. No: Apparent Distress HEENT: positive: EOMI, TRENT, Normal ENT Inspection, Normal Voice, Symmetrical, Pharynx Normal Neck: positive: Trachea midline, Normal Thyroid, Supple Respiratory/Chest: positive: Lungs Clear, Normal Breath Sounds. negative: Chest Tender, Respiratory Distress, Accessory Muscle Use, Crackles, Wheezing Cardiovascular: positive: Regular Rhythm, Regular Rate, S1, S2. negative: Edema , JVD, Murmur Vascular Pulses: Dorsalis-Pedis (R): 2+, Doralis-Pedis (L): 2+ Gastrointestinal/Abdominal: positive: Tender Musculoskeletal: positive: Normal Inspection. negative: CVA Tenderness Integumentary: positive: Normal Color, Warm Neurologic: positive: endoscopy specialty technician II-XII NML intact Medical Decision Making - Medical Decision Making 05/29/19 23:17 Symptoms likely 2/2 UTI >>Send UA Will give tylenol po for pain. Plan to d/c with abx and referral for plastic surgery f/u. 05/29/19 23:42 UA: 3+ protein, 2+ blood, 2+ LE Discharge - Discharge Information Problems reviewed: Yes Clinical Impression/Diagnosis: UTI (urinary tract infection) Qualifiers: Urinary tract infection type: acute cystitis Hematuria presence: with hematuria Qualified Code(s): N30.01 - Acute cystitis with hematuria Condition: Improved Disposition: HOME - Admission No - Additional Discharge Information Prescriptions: Phenazopyridine HCl [Pyridium -] 200 mg PO TID PRN #12 tablet PRN Reason: Pain Level 4 - 6 Sulfamethoxazole/Trimethoprim [Bactrim Ds -] 1 tab PO BID #7 tablet - Follow up/Referral Referrals: Pascual Omalley MD [Staff Physician] - - Patient Discharge Instructions Additional Instructions: You were evaluated in the ER and found to have a urinary tract infection. We are prescribing you with antibiotics and pain medications that you should take as prescribed: - Bactrim ds twice a day (once in morning, once in evening) for 7 days - Pyridium 200mg 2-3 times per day for urinary pain. Your symptoms should resolve within a few days. Please note that this will likely turn the color of your urine orange. You should also follow up with a plastic surgeon to evaluate your surgical incision. We provided you with a referral to see Dr. Omalley. You should also follow up with your primary care provider in one week. Please return to the ER if you experience fevers, chills, worsening urinary symptoms, abdominal pain, nausea, or vomiting. - Post Discharge Activity
[2019-05-29] MEDS ORDERED: ACETAMINOPHEN 325 MG TABLET (FP) PO ONE (22:53)
[2019-05-29] MEDS ORDERED: ACETAMINOPHEN 325 MG TABLET (FP) ONE (23:16)
[2019-05-29 23:32] LABS: EPI CELLS 2.5 /HPF (0-5/HPF); HYALINE CASTS 15 /lpf (0-8); URINE APPEARANCE CLOUDY; URINE BILIRUBIN NEGATIVE (NEGATIVE); URINE COLOR YELLOW; URINE GLUCOSE (UA) NEGATIVE (NEGATIVE); URINE KETONE NEGATIVE (NEGATIVE); URINE LEUK ESTERASE 2+ (NEGATIVE); URINE NITRITE NEGATIVE (NEGATIVE); URINE PROTEIN 3+ (NEGATIVE); URINE UROBILINOGEN 0.2 mg/dL (0.2-1.0); URINE WBC 177 /hpf (0-5)
[2019-05-29] MEDS ORDERED: PHENAZOPYRIDINE HCL 100 MG TABLET (FP) PO ONE (23:56)
[2019-05-30] MEDS ORDERED: PHENAZOPYRIDINE HCL 100 MG TABLET (FP) ONE (00:07)
--- NOTE | 2019-05-30 01:19 | PDOC ---
Documentation entered by Anuj Alcaraz SCRIBE, acting as scribe for Maryuri Olsen MD. Maryuri Olsen MD: This documentation has been prepared by the Kieran serrato Daniel, SCRIBE, under my direction and personally reviewed by me in its entirety. I confirm that the documentation accurately reflects all work, treatment, procedures, and medical decision making performed by me. Attending Attestation - Resident Resident Name: Gabriela Jones - ED Attending Attestation I have performed the following: I have examined & evaluated the patient, The case was reviewed & discussed with the resident, I agree w/resident's findings & plan, Exceptions are as noted - HPI HPI: 05/29/19 23:05 The patient is a 29 year old female with no past medical history here today for evaluation of dysuria and drainage from surgical site. The patient reports that she had an abdominoplasty 1 month ago and has been noticing drainage from the surgical site with some pain. She also notes worsening dysuria and notes some blood after wiping. Patient denies headache, lightheadedness. Denies fever, chills. Denies chest pain, shortness of breath. Denies nausea, vomiting, diarrhea. Allergies: NKA - Physicial Exam PE: 05/30/19 01:16 awake alert lungs clear bilat heart rrr nomrg abd wound / incision intact. smal area central suprapubic scar region with dehyiscense. smal drainage. healing secondarily. no surrounding erythema. no fluctuance. no pain on palpation. ext wwp. - Medical Decision Making 05/30/19 01:17 29 yo F s/p c section, and abdominoplasty 1 mo ago in [place], here with concerns for uti. pt has been followign wtih her surgeons in [place] via skype and phone, has been doing wet to dry dressingon her scar / for wound / incision infection. started wtih dysuria and urgency for 3 days. did have blood when wiping. no flank pain. no n/f no fever no chils. on exam pt with wound healing secondarily margaret treat for uti. pt given bactrim will also help with her scar. told to follow up with her surgeon. given plastic surgery name for fu here also. dc to home. culture sent.
[2019-05-30 01:47] VITALS: BP 124/75; PULSE 94
[2019-05-30 03:33] LABS: YEAST FEW SEEN (NEGATIVE)
== END 2019-05-30 01:35 | disposition home or self-care (01) ==
LOC: JER 21:01
DX: N30.01 Acute cystitis with hematuria (principal); Z98.890 Other specified postprocedural states
CPT/HCPCS: 81003; 84703; 87086; 87186; 99283-25